=== PATIENT | female | born 1965 | race Caucasian/White ===

== ENCOUNTER 2020-06-30 21:45 | Inpatient (IN) | payer MEDICARE ==
[~2020-06-30] VITALS: Ht 167.6 cm; Wt 47.6 kg
--- NOTE | 2020-06-30 21:55 | NUR ---
Pt. admitted to MHU. , under care of Dr. France/Emilee. Report to Darlin BERKOWITZ Belongs List completed
[2020-06-30] MEDS ORDERED: TRAZ300T2 PO (22:04)
[2020-06-30] MEDS ORDERED: AMOX500C2 PO (22:04)
[2020-06-30] MEDS ORDERED: ARIP10TA9 PO (22:05)
[2020-06-30] MEDS ORDERED: LEVO25TA9 PO (22:06)
[2020-06-30] MEDS ORDERED: CLON0.5T4 PO (22:06)
[2020-06-30] MEDS ORDERED: MAGNESIUM HYDROXIDE 30 ML LIQUID UDC PO PRN (22:30)
[2020-06-30] MEDS ORDERED: MAG HYDROX/AL HYDROX/SIMETH 30 ML LIQUID UDC PO PRN (22:30)
[2020-06-30] MEDS ORDERED: BLOOD SUGAR DIAGNOSTIC 1 EACH STRIP VI ONE (22:30)
--- NOTE | 2020-06-30 22:30 | NUR ---
NSG: ADMITTED A 54 YEARS OLD FEMALE AT 22:30 ON 5150 HOLD FOR DTS/GD UNDER DR. MOSLEY IS THE PSYCHIATRIST AND DR MICHAELS IS THE CART DRIVER. PER HOLD PATIENT WANTS TO KILL HER SELF WITH PLAN. ON FACE TO FACE ASSESSMENT SHE KEPT RAMBLING,PRESSURED SPEECH, UNABLE TO STAY ON ONE TOPIC AND HAVING TANGENTIAL THOUGHTS. BODY ASSESSMENT DONE. SHE HAD SCRACHES ON HER FACE.LESION ON MID CHEST. MULTIPLE SCAR AND SCRATCHES ON BACK AND BOTH LEGS AND ARM. ATIVAN 0.5 MG PO AND RESTORIL 7.5 MG PO GIVEN PER PATIENT REQUESTED. SHOWN TO HER ROOM. HANDBOOK GIVEN. SAFETY MEASURES PUT IN PLACE . WILL CONTINUE TO MONITOR.
--- NOTE | 2020-06-30 22:45 | NUR ---
patient is screaming loud ,very agitated . ativan 0.5 mg po prn given.
[2020-06-30] MEDS: LORAZEPAM 0.5 MG TABLET PO PRN (22:48)
[2020-06-30] MEDS: TEMAZEPAM 7.5 MG CAPSULE PO PRN (23:08)
[2020-07-01] MEDS: LORAZEPAM 0.5 MG TABLET PO PRN (03:22)
--- NOTE | 2020-07-01 03:24 | NUR ---
patient c/o anxiety. ativan 0.5 mg po given.
--- NOTE | 2020-07-01 05:53 | NUR ---
GPS: Remain uncooperative with care. slept 2.30 hrs only after sleeping meds given. ambulate with unsteady gait. assisted with adl's. Resting in bed comfotrably.
[2020-07-01] MEDS ORDERED: LORAZEPAM 2 MG/1 ML VIAL IM ONE ×2 (07:00→08:45)
[2020-07-01] MEDS ORDERED: OLANZAPINE 10 MG VIAL IM ONE ×2 (07:00→08:45)
--- NOTE | 2020-07-01 07:04 | NUR ---
patient is out of control.thronging water on staff,yelling.banging on the table. Dr persaud called. ativan 2 mg im and zyprexa 10 mg im given. patient is resting in bed comfortably. continue monitor for safety.
--- NOTE | 2020-07-01 07:08 | NUR ---
Receieve patient asleep on bed patient just had emergency IM shot just before the start of the shift, patient appears to be disorganized, patient labile, manic , patient was on monitoring for safety,
[2020-07-01 07:30] VITALS: BP 132/89
[2020-07-01] MEDS: NICOTINE 14 MG/24HR PATCH TD SCH (08:18)
--- NOTE | 2020-07-01 08:51 | NUR ---
Firearms Report: Target Protection Specialist completed and submitted a [employer] firearms report for 5150 danger to self and grave disability certifications. A copy of report has been placed in patient chart.
--- NOTE | 2020-07-01 09:00 | NUR ---
patient started yelling, throw the extension phone on the floor, and broke it, patient verbalizes i will scratches my face until i get my medication, report writer tried to educate the patient about her medication, patient unable to redirect , patient started to scratch her face and induce mitchell in her face, patient disrobbed , called matthew miles , security came in and in house cra, called and spoke with DR. persaud, patient got order for physical restrain for 20minutes, face to face evaluation was made by ER doctor, Emergency IM shot was ordered and given, patient was monitored for circulation and VS was stable, one on one sitter was ordered for safety , after 20 minutes patient was released and gave methadone prn, patient was transfered back to her room, patient continous to be disorganized manic unsteady hyperverbal at this time, sitter at the bedside
--- NOTE | 2020-07-01 09:30 | NUR ---
physical restraint order discontinued.
--- NOTE | 2020-07-01 09:31 | NUR ---
JOSE Initial Discharge Plan: Patient is currently uncooperative at this time and is unable to state where she lives/resides. SW will meet with patient again once she is more stable, calm, and cooperative. Patient does not have any next of kin or supportive contacts to notify. SW will continue to work with patient and MD to ensure a safe and proper discharge plan.
[2020-07-01] MEDS ORDERED: METHADONE HCL 10 MG TABLET PO PRN (09:45)
--- NOTE | 2020-07-01 09:52 | NUR ---
Brief Substance Abuse Intervention: Patient was provided with a brief substance abuse intervention for Suboxone and referred to [facility] [address], [place] [address] ([phone]); [facility] [address], [address], [place] [address] ([phone]); [facility] ([phone]); [facility] ([phone]); [facility] ([phone]); and National Suicide Prevention Lifeline (726-204-4353).
--- NOTE | 2020-07-01 11:40 | NUR ---
WOUND CARE CONSULT: UNABLE TO DO SKIN ASSESSMENT DUE TO PT AGITATED. SITTER AT BEDSIDE. SOME SCRATCH TEJEDA NOTED TO PT FACE FROM DOORWAY. PT SCRATCHES AT HER SKIN PER NURSING STAFF. WILL SEE PT PT CONDITION PERMITS.
[2020-07-01 13:00] VITALS: BP 118/51
[2020-07-01] MEDS: OLANZAPINE 2.5 MG TABLET PO SCH ×2 (13:08→16:04)
--- NOTE | 2020-07-01 14:06 | NUR ---
SW Family Contact: This SW contacted patient's andree Bryan ([phone]) to discuss discharge plan and treatment plan. This SW gathered information from [facility]. He reported that patient lives at [address] [place] [address]. He reported that patient has been off substance for many years. He shared that patient has been stressed and depressed because of her finances.
[2020-07-01 14:55] LABS: BASOPHILS % (AUTO) 0.2 % (0.0-2.0); EOSINOPHILS # (AUTO) 0.2 K/uL (0.0-0.7); EOSINOPHILS % (AUTO) 2.1 % (0.0-7.0); HEMATOCRIT 40.9 % (31.2-41.9); HEMOGLOBIN 13.9 g/dL (10.9-14.3); LYMPHOCYTES # (AUTO) 2.6 K/uL (20.0-40.0); LYMPHOCYTES % (AUTO) 26.1 % (20.5-51.5); MEAN CORPUSCULAR HEMOGLOBIN 30.8 uug (24.7-32.8); MEAN CORPUSCULAR HGB CONC 34 g/dL (32.3-35.6); MONOCYTES % (AUTO) 10.1 % (0.0-11.0); NEUTROPHILS # (AUTO) 6.1 K/uL (1.8-8.9); NEUTROPHILS % (AUTO) 61.5 % (38.5-71.5); PLATELET COUNT (AUTO) 241 K/uL (179-408); WHITE BLOOD COUNT (AUTO) 9.9 K/uL (3.8-11.8)
[2020-07-01 15:01] LABS: BILIRUBIN,TOTAL 0.3 mg/dL (0.2-1.0); CREATININE 0.8 mg/dL (0.6-1.3); POTASSIUM 4.6 mmol/L (3.5-5.1); TOTAL PROTEIN, SERUM 7.1 g/dL (6.4-8.2)
[2020-07-01 15:12] LABS: THYROID STIMULATING HORMONE 6.542 mIU/mL (0.358-3.740)
[2020-07-01] MEDS: CLONAZEPAM 1 MG TABLET PO PRN (15:12)
[2020-07-01] MEDS: METHADONE HCL 10 MG TABLET PO SCH (16:04)
[2020-07-01] MEDS: ENSURE ENLIVE (VAN) 240 ML LIQUID PO SCH ×2 (16:04→21:00)
--- NOTE | 2020-07-01 17:44 | NUR ---
PATIENT SEEN CALM AND COOPERATIVE, PATIENT COMPLIANT WITH MEDICATION, MONITORED [id number] WITH BEDSIDE SITTER AT THIS TIME, NO SIGN OF ANY DISTRESS
[2020-07-01 20:01] VITALS: BP 115/82
[2020-07-01] MEDS: TEMAZEPAM 7.5 MG CAPSULE PO PRN (22:27)
[2020-07-02] MEDS: CLONAZEPAM 1 MG TABLET PO PRN ×5 (00:51→19:52)
[2020-07-02] MEDS: LEVOTHYROXINE SODIUM 25 MCG TABLET PO SCH (05:21)
[2020-07-02 07:30] VITALS: BP 112/85
[2020-07-02] MEDS: OLANZAPINE 2.5 MG TABLET PO SCH ×2 (08:50→16:01)
[2020-07-02] MEDS: NICOTINE 14 MG/24HR PATCH TD SCH (08:51)
[2020-07-02] MEDS: METHADONE HCL 10 MG TABLET PO SCH ×2 (08:51→16:01)
[2020-07-02] MEDS: ENSURE ENLIVE (VAN) 240 ML LIQUID PO SCH ×3 (08:56→16:01)
[2020-07-02] MEDS ORDERED: METHADONE HCL 10 MG TABLET PO ONE (10:15)
[2020-07-02 15:21] VITALS: BP 114/74
[2020-07-02 20:00] VITALS: BP 123/72
[2020-07-02] MEDS: ACETAMINOPHEN 325 MG TABLET PO PRN (22:21)
[2020-07-02] MEDS: TEMAZEPAM 7.5 MG CAPSULE PO PRN (22:21)
[2020-07-03] MEDS: CLONAZEPAM 1 MG TABLET PO PRN ×2 (00:15→20:56)
[2020-07-03] MEDS: LEVOTHYROXINE SODIUM 25 MCG TABLET PO SCH (06:00)
--- NOTE | 2020-07-03 06:08 | NUR ---
Patient was up most of the night. Hyperactive and seeking any medications that might be due. Manufacturing Operator was able to redirect patient most of the time. Total sleep hours were 4.17. Multiple times during the shift patient would make self destructive comments , such as " I am too fat, I need to weight 85 lbs ". 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 Throwing water in the room when angry with labile behavior. Manufacturing Operator is unable to engage patient in any meaningful conversation and her speech is tangental. Continuing to provide a safe environment and monitoring patient closely for behavior escalation aimed towards self, peers or staff.
[2020-07-03 07:30] VITALS: BP 117/72
[2020-07-03 08:00] VITALS: BP 117/72
[2020-07-03] MEDS: METHADONE HCL 10 MG TABLET PO SCH ×2 (08:00→18:10)
[2020-07-03] MEDS: OLANZAPINE 2.5 MG TABLET PO SCH ×2 (08:01→18:13)
[2020-07-03] MEDS: ENSURE ENLIVE (VAN) 240 ML LIQUID PO SCH ×3 (08:01→17:55)
[2020-07-03] MEDS: NICOTINE 14 MG/24HR PATCH TD SCH (08:01)
[2020-07-03] MEDS: ACETAMINOPHEN 325 MG TABLET PO PRN (10:57)
[2020-07-03 16:00] VITALS: BP 103/66
[2020-07-03 20:00] VITALS: BP 134/78
[2020-07-03] MEDS: TEMAZEPAM 7.5 MG CAPSULE PO PRN (22:33)
[2020-07-04] MEDS: CLONAZEPAM 1 MG TABLET PO PRN ×2 (02:04→22:49)
[2020-07-04] MEDS: ACETAMINOPHEN 325 MG TABLET PO PRN ×2 (02:04→14:16)
--- NOTE | 2020-07-04 05:58 | NUR ---
Patient slept 3.0 hours last night. Her mood was much calmer than the night before and patient was redirectable and pleasant. Although needy at times, no behavioral issues arouse and patient was able to socialize with her roommate with out any distress. Still medication seeking at times but an improvement from earlier. Continuing to monitor for safety and continuing with the treatment plan.
[2020-07-04] MEDS: LEVOTHYROXINE SODIUM 25 MCG TABLET PO SCH (06:18)
[2020-07-04 07:30] VITALS: BP 121/52
--- NOTE | 2020-07-04 08:00 | NUR ---
received report from WOO Sofia. All questions, comments, and concerns were addressed. Received patient resting quietly in her assigned bed. bed is in low and locked position. patient is arousable to name.
[2020-07-04] MEDS: OLANZAPINE 2.5 MG TABLET PO SCH (08:31)
[2020-07-04] MEDS: NICOTINE 14 MG/24HR PATCH TD SCH (08:31)
[2020-07-04] MEDS: ENSURE ENLIVE (VAN) 240 ML LIQUID PO SCH ×3 (08:31→17:50)
[2020-07-04] MEDS: METHADONE HCL 10 MG TABLET PO SCH ×2 (08:31→16:53)
--- NOTE | 2020-07-04 10:47 | NUR ---
patient is alert and oriented. patient is withdrawn, isolative to her assigned room, cooperative and redirectable. she is needy, anxious, restless, hyperverbal, and noted with racing, tangential thoughts. patient is adherent with medication, no adverse reaction noted. she is labile in mood. patient is unkempt and disheveled in her own clothing. denies SI/HI, denies AH/VH. she is able to ambulate independently, encouraged to perform self care and ADL's. patient encouraged to participate in the unit therapeutic milieu and groups. educated about impulse control.
[2020-07-04 15:04] VITALS: BP 113/48
--- NOTE | 2020-07-04 15:21 | NUR ---
SW Family Contact: This SW spoke with patient's andree Bryan ([phone]) who wanted to know when patient will be discharged. This SW stated patient continues to receive her treatment and do not have a discharge day yet. SW will follow-up.
[2020-07-04 20:22] VITALS: BP 132/54
[2020-07-04] MEDS ORDERED: OLANZAPINE 2.5 MG TABLET PO SCH (21:00)
[2020-07-04] MEDS ORDERED: OLANZAPINE 5 MG TABLET PO SCH (21:00)
[2020-07-04] MEDS: TEMAZEPAM 7.5 MG CAPSULE PO PRN (22:03)
--- NOTE | 2020-07-04 22:51 | NUR ---
Gps: patient c/o anxiety. klonopin 1 mg po given.
[2020-07-05] MEDS: LEVOTHYROXINE SODIUM 25 MCG TABLET PO SCH (06:09)
--- NOTE | 2020-07-05 06:23 | NUR ---
Gps: Patient remain. Hyperverbal and seeking any medications that might be due. Total sleep hours were 6. Multiple times during the shift patient would make self destructive comments , such as " I am too fat, I need to weight 50 lbs ". 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 Throwing water and empty cups on the floor. angry with labile behavior. conversation and her speech is tangental. Continuing to provide a safe environment and monitoring patient closely for behavior escalation aimed towards self, peers or staff.
[2020-07-05] MEDS: CLONAZEPAM 1 MG TABLET PO PRN ×3 (07:17→18:44)
[2020-07-05 07:30] VITALS: BP 101/67
[2020-07-05] MEDS: METHADONE HCL 10 MG TABLET PO SCH ×2 (08:08→16:17)
[2020-07-05] MEDS: NICOTINE 21 MG/24HR PATCH TD SCH (08:09)
[2020-07-05] MEDS: ENSURE ENLIVE (VAN) 240 ML LIQUID PO SCH ×3 (08:09→16:12)
--- NOTE | 2020-07-05 15:11 | NUR ---
patient noted with unpredictable behavior, agitated behavior,hyperverbal, noted staying in the bathroom longer times of periods, Klonopin given to patient as ordered, with some effectiveness. denied suicidal thoughts,continue to monitor for behavior
[2020-07-05] MEDS ORDERED: GABAPENTIN 100 MG CAPSULE PO SCH (17:00)
[2020-07-05] MEDS: ACETAMINOPHEN 325 MG TABLET PO PRN (20:18)
[2020-07-05] MEDS: ARIPIPRAZOLE 10 MG TABLET PO SCH (20:18)
[2020-07-05 20:21] VITALS: BP 164/59
[2020-07-05 20:23] VITALS: BP 97/59
--- NOTE | 2020-07-05 20:25 | NUR ---
patient c/o gen: pain and fever 99.8. tylenol 650 mg po given per patient request.
[2020-07-05] MEDS: TEMAZEPAM 7.5 MG CAPSULE PO PRN (22:17)
[2020-07-06] MEDS: CLONAZEPAM 1 MG TABLET PO PRN ×3 (01:24→20:19)
--- NOTE | 2020-07-06 01:25 | NUR ---
GPS: PATIENT IS VERY ANGRY TO STAFF STATED I WANT GO HOME.YOU SINGH ARE UGLY.THROWING PAPER CUPS ON THE FLOOR. KLONOPIN 1 MG PO GIVEN FOR ANXIETY.
[2020-07-06] MEDS: LEVOTHYROXINE SODIUM 25 MCG TABLET PO SCH (06:07)
--- NOTE | 2020-07-06 06:20 | NUR ---
Gps: Patient remain, Hyperverbal and medications seeking slept 4.15 hrs through the night. Multiple times during the shift patient would make self destructive comments , such as " I am too fat, I am rich. 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 patient had episode of Throwing water and empty cups on the floor. patient was angry with labile behavior. conversation and her speech is tangental. klonopin given for anxiety and effective.Continuing to provide a safe environment and monitoring patient closely for behavior escalation aimed towards self, peers or staff. continue plan of care.
[2020-07-06 07:30] VITALS: BP 98/57
--- NOTE | 2020-07-06 07:30 | NUR ---
received report from HILARIO Armstrong. All questions, comments, and concerns were addressed. Received patient awake, resting quietly in her assigned bed. patient is alert to name. bed is in low and locked position.
[2020-07-06] MEDS: ENSURE ENLIVE (VAN) 240 ML LIQUID PO SCH ×3 (09:02→17:46)
[2020-07-06] MEDS: NICOTINE 21 MG/24HR PATCH TD SCH (09:24)
[2020-07-06] MEDS: METHADONE HCL 10 MG TABLET PO SCH ×2 (09:24→16:25)
--- NOTE | 2020-07-06 09:32 | NUR ---
MOBILE ENGINEER Contact: This SW received a phone call from patient's MOBILE ENGINEER Gem ([phone]) who wanted to know how patient has been doing. This SW discussed treatment and discharge plan. Gem stated that patient has been contacting her and stating that the doctor wants to file for conservatorship. This SW stated that doctor is not planning on filing for conservatorship and patient appears to be disorganized.
[2020-07-06] MEDS ORDERED: LORAZEPAM 2 MG/1 ML VIAL IM ONE (11:15)
[2020-07-06] MEDS ORDERED: diphenhydrAMINE 50 MG/1 ML VIAL IM ONE (11:15)
[2020-07-06] MEDS ORDERED: HALOPERIDOL LACTATE 5 MG/1 ML VIAL IM ONE (11:15)
--- NOTE | 2020-07-06 11:31 | NUR ---
patient was noted to be walking in the hallway screaming obscenities at staff, yelling 'I'm skinny! I'm beautiful!'. Patient asked this bond writer for Milk of Magnesia, states "Look at me! I'm so fat! Look at my stomach!" despite the fact that patient had a BM this morning. This bond writer educated patient about MOM and indications for taking medication, patient is refusing education and stated "Fine! Then I'll stick my finger up my ass!" then proceeded to pull her pants down in the middle of the hallway and place her index finger inside her rectum. Patient was also noted to be smearing her feces in her assigned bathroom this AM. patient then continues screaming, cursing and threatening staff. patient then started to hit herself in the abdomen and yell at herself. Md notified of patient's behavior, orders received for Haldol 5 mg, Ativan 1 mg, Benadryl 50 mg IM once. Orders placed. Security notified. IM given without adverse reaction. Patient instructed to remain seated to prevent fall.
[2020-07-06 16:00] VITALS: BP 101/64
[2020-07-06] MEDS: ARIPIPRAZOLE 10 MG TABLET PO SCH ×2 (16:25→20:15)
[2020-07-06 20:24] VITALS: BP 111/76
--- NOTE | 2020-07-06 21:04 | NUR ---
Pt given Klonopin prn at 2019H because of agitation. Pt tolerated it well. Vital signs stable. Safety and comfort provided. Will continue to monitor.
[2020-07-06] MEDS: TEMAZEPAM 7.5 MG CAPSULE PO PRN (22:00)
[2020-07-07] MEDS: LEVOTHYROXINE SODIUM 25 MCG TABLET PO SCH (06:40)
--- NOTE | 2020-07-07 06:41 | NUR ---
PT SLEPT 6.5 H. PT IN NO ACUTE DISTRESS. PT HAD 3 BOWEL MOVEMENTS. PRESCRIBED MEDICATION GIVEN AND PT TOLERATED IT WELL. SAFETY AND COMFORT PROVIDED. WILL ENDORSE TO INCOMING NURSE FOR CONTINUITY OF CARE.
[2020-07-07 07:30] VITALS: BP 120/83
[2020-07-07] MEDS: ARIPIPRAZOLE 10 MG TABLET PO SCH ×2 (08:09→20:38)
[2020-07-07] MEDS: METHADONE HCL 10 MG TABLET PO SCH ×2 (08:11→16:17)
[2020-07-07] MEDS: NICOTINE 21 MG/24HR PATCH TD SCH (08:12)
[2020-07-07] MEDS: ENSURE ENLIVE (VAN) 240 ML LIQUID PO SCH ×3 (08:12→17:37)
--- NOTE | 2020-07-07 10:19 | NUR ---
Court Hearing: Patient's court hearing was today and it was upheld for GD.
--- NOTE | 2020-07-07 11:00 | NUR ---
TRAINING DESIGNER Contact: This SW spoke with patient's TRAINING DESIGNER Gem ([phone]) who stated that she will be picking up patient 04/09/20 at 11AM and not her andree Bryan. This SW will contact Irvin.
--- NOTE | 2020-07-07 11:02 | NUR ---
SW Family Contact: This SW left a voicemail to patient's andree Bryan ([phone]) and stated that STRETCHING MACHINE OPERATORDebbie Rabago ([phone]) will supervisor picking crew at 11AM.
[2020-07-07 16:32] VITALS: BP 121/70
--- NOTE | 2020-07-07 19:33 | NUR ---
No significant changes during shift. Patient stayed in room for most of the shift. Patient was compliant with medication and care. Patient denies SI/ HI. Patient for discharge tomorrow. Will endorse to incoming shift.
[2020-07-07 20:20] VITALS: BP 112/65
[2020-07-07] MEDS: CLONAZEPAM 1 MG TABLET PO PRN (20:38)
[2020-07-07] MEDS: TEMAZEPAM 7.5 MG CAPSULE PO PRN (22:14)
--- NOTE | 2020-07-08 04:59 | NUR ---
PATIENT ALERT ORIENTED, NO COMPLAIN OF PAIN, STAYED IN HER ROOM, REQUEST FOR KLONOPIN DUE TO ANXIETY, AND REQUEST FOR SLEEPING MEDS FOR INSOMNIA. PATIENT COOPERATIVE WITH MEDICATION AND CARE. PATIENT HAS X2 LBM , WILL CONT TO MONITOR,NOTIFY CHARGE NURSE, ENDORSE TO NEXT SHIFT.
[2020-07-08] MEDS: LEVOTHYROXINE SODIUM 25 MCG TABLET PO SCH (06:44)
[2020-07-08 07:30] VITALS: BP 121/86
--- NOTE | 2020-07-08 08:07 | NUR ---
SW Discharge Note: Patient will be [facility] back [place] [address] [facility] [address] with her darwin Bryan ([phone]). Patients NIGHT SHIFT Gem ([phone]) will citrus picker patient at 11AM. Patients darwin Bryan ([phone]) is aware of discharge. Patient is alert and oriented x4 and is aware and agreeable with discharge plans. Patient presents with euthymic mood and congruent affect. Patient denies suicidal or homicidal ideation. Patient will be following up with her psychiatrist Dr. Marco Humphrey MD [address] [place] [address] ( ) on Saturday07/11/2020 at 3PM. Patient was provided with a brief substance abuse intervention and referred to [facility] [address] [place] [address] ([phone]); [facility] [address] [place] [address], [address], [place] [address] ([phone]); [facility] ([phone]); [facility] ([phone]); [facility] ([phone]); and National Suicide Prevention Lifeline (678-969-3239).
[2020-07-08] MEDS: ARIPIPRAZOLE 10 MG TABLET PO SCH (08:28)
[2020-07-08] MEDS: METHADONE HCL 10 MG TABLET PO SCH (08:28)
[2020-07-08] MEDS: NICOTINE 21 MG/24HR PATCH TD SCH (08:28)
[2020-07-08] MEDS: ENSURE ENLIVE (VAN) 240 ML LIQUID PO SCH ×2 (08:29→12:14)
--- NOTE | 2020-07-08 09:49 | NUR ---
SW Note: Patient has a follow up for Methadone treatment at [address] [address] ([phone]) and has an appointment scheduled on Saturday07/11/20 at 6am spoke with Maria C.
--- NOTE | 2020-07-08 13:49 | NUR ---
With discharge order to home. Prescription and DC instruction given to patient, vebalized understanding. Belongings and valuables returned to patient. Went home per wheelchair i fair condition, not in distress, calm and compliant.
== END 2020-07-08 17:01 | disposition home or self-care (01) | DRG 885 ==
LOC: ER 21:45 → GPS 22:05
PROVIDERS: ADMIT Psychiatry & Neurology Psychiatry; ATTEND Nurse Practitioner Acute Care
DX: F39 Unspecified mood [affective] disorder (principal); F13.239 Sedative, hypnotic or anxiolytic dependence with withdrawal, unspecified; G93.41 Metabolic encephalopathy; R45.851 Suicidal ideations; F23 Brief psychotic disorder; E03.9 Hypothyroidism, unspecified; F32.9 Major depressive disorder, single episode, unspecified; F17.200 Nicotine dependence, unspecified, uncomplicated; G89.29 Other chronic pain
CPT/HCPCS: 36415; 84443; 85025; A4663; J1200; J1630; J2060; J2358

== ENCOUNTER 2021-01-12 14:00 | Inpatient (IN) | payer MEDICARE ==
[~2021-01-12] VITALS: Ht 167.6 cm; Wt 51.3 kg
[~2021-01-12 14:00] MED LIST: AMOX500C2 PO; LEVO25TA9 PO
[2021-01-12] MEDS ORDERED: CLON1TAB12 PO (14:16)
[2021-01-12] MEDS ORDERED: AMAN100T PO (14:16)
[2021-01-12] MEDS ORDERED: SUBOXONE (14:16)
[2021-01-12] MEDS ORDERED: ESOM40CA PO (14:16)
[2021-01-12] MEDS ORDERED: LEVO100C2 PO (14:16)
[2021-01-12] MEDS ORDERED: AMIT25TA9 PO (14:16)
[2021-01-12] MEDS ORDERED: AMOX500C2 PO (14:16)
[2021-01-12] MEDS ORDERED: POLY17PO4 PO (14:16)
[2021-01-12] MEDS ORDERED: TRAZ150T75 PO (14:16)
[2021-01-12] MEDS ORDERED: SUCR1TAB31 PO (14:16)
[2021-01-12] MEDS ORDERED: DIPH50CA37 PO (14:16)
[2021-01-12] MEDS ORDERED: OMEG1CAP PO (14:16)
--- NOTE | 2021-01-12 14:35 | NUR ---
Pt requested "a shot of Haldol", pt was medicated as ordered by .
--- NOTE | 2021-01-12 14:37 | NUR ---
Per pt is medically clear for admission to MHU.
[2021-01-12] MEDS ORDERED: HALOPERIDOL LACTATE 5 MG/1 ML VIAL ONE (14:40)
--- NOTE | 2021-01-12 14:41 | NUR ---
SBAR report given to Maricarmen in MHU.
[2021-01-12] MEDS ORDERED: HALOPERIDOL LACTATE 5 MG/1 ML VIAL IM ONE (14:45)
--- NOTE | 2021-01-12 15:01 | NUR ---
Pt trans to MHU, NAD noted.
--- NOTE | 2021-01-12 15:30 | NUR ---
Gps/Medical Resident- Received report from WOO NICHOLAS . Admitted from ER via wheel chair, alert, oriented x3, labile emotionally , crying spells, yelling at the staff, demanding needs. Refused to get weighed . Irritable , instructed to calm down. Has own cell phone , instructed to get all information she needed in it, write it down , will put valuables and phone in the safe. Patient kept calling her Trustee Cindy , yelling at her , demanding needs. Routine admission care.
[2021-01-12] MEDS ORDERED: MAGNESIUM HYDROXIDE 30 ML LIQUID UDC PO SCH (16:30)
[2021-01-12] MEDS ORDERED: MAG HYDROX/AL HYDROX/SIMETH 30 ML LIQUID UDC PO PRN (16:30)
[2021-01-12] MEDS ORDERED: LORAZEPAM 1 MG TABLET PO SCH (18:00)
--- NOTE | 2021-01-12 18:03 | NUR ---
GPS: PT ADMITTED TODAY AND REQUESTED TO USE THE BATHROOM. PT OBSERVED TO BE SCOOPING FECES FROM HER ANUS AND SPREAD ON HER MOUTH AND EATING THE FECES. RINSED HER HANDS A LITTLE AND WASH HER FACE AND STATING "LOOK AT MY FACE, I'M BEAUTIFUL". SEEN PT SCRATCH HER VAGINA. PT WITH EPISODE OF VERY AGITATED AND SCRATCHED HER FACE.
--- NOTE | 2021-01-12 18:10 | NUR ---
Gps/Computer Systems Design Analyst- Impulsivity with her mobility, gets up abruptly from the wheel chair during admission, walking side ways. Yelling at staff telling them " I want to see my money right now, you are stealing it" . Patient remains anxious, fidgety, wheeled to her room, as assigned, , dinner given, ate fairly well, except milk claimed she does not drink it. Patient tend to dropped self to the floor as observed by the staff , trying to get attentions from staff , trying to meet provide her needs.
[2021-01-12] MEDS: LORAZEPAM 1 MG TABLET PO PRN (18:27)
[2021-01-12] MEDS ORDERED: OLANZAPINE 10 MG VIAL IM STA (19:59)
[2021-01-12 20:00] VITALS: BP 118/71
--- NOTE | 2021-01-12 20:21 | NUR ---
Received patient yelling, demanding, throwing items in the unit. Patient combative and striking out at staff. Less restrictive means were attempted to calm patient, with no results. Dr. Bell was notified and the order was received for a one time IM injection. The patient was cooperative when receiving the injection. No need for security and no hands were applied. Currently a face to face evaluation is being done. VS are stable at this time. Monitoring closely for safety of staff, patient and peers.
[2021-01-12 21:30] VITALS: BP 119/81
--- NOTE | 2021-01-12 21:55 | NUR ---
GPS: Pt.asleep at this time during rounds. Breathing easy and unlabored. Responsive to tactile stimuli. Bed alarm on for safety. Fall precautions observed. Will continue to re-direct prn.
[2021-01-13] MEDS: LORAZEPAM 1 MG TABLET PO PRN ×3 (03:52→20:16)
--- NOTE | 2021-01-13 06:17 | NUR ---
GPS: Pt.slept 7 hrs.last night. Got up few times to use the toilet. Remains anxious,depressed,and with crying episodes. Re-directed and re-assured prn. Denied auditory hallucinations when asked earlier. Safe environment provided. Will continue to monitor.
[2021-01-13 07:30] VITALS: BP 127/76
[2021-01-13] MEDS: NICOTINE 21 MG/24HR PATCH TD SCH (08:17)
[2021-01-13] MEDS: MAGNESIUM HYDROXIDE 30 ML LIQUID UDC PO PRN (08:21)
--- NOTE | 2021-01-13 08:22 | NUR ---
Gps/Contaminated Land Consultant- Yelling screaming, making inappropriate nasty remarks towards the staff.Noted disrobing on the hallway, pulling her pajama bottoms down, showing her anus, claimed extremely constipated" I will pull out my shit and will eat it" .Loud demanding to be given MOM" Patient apologizes to staff crying after bouts of yelling , curisng and calling staff names.
[2021-01-13] MEDS ORDERED: HALOPERIDOL LACTATE 5 MG/1 ML VIAL IM ONE (09:45)
[2021-01-13] MEDS ORDERED: diphenhydrAMINE 50 MG/1 ML VIAL IM ONE (09:45)
--- NOTE | 2021-01-13 10:45 | NUR ---
Gps/Manager Clinic- Patient in bed asleep
--- NOTE | 2021-01-13 11:36 | NUR ---
PT NOTED SEVERELY PSYCHOTIC, THROWING HERSELF ON FLOOR. EPISODES OF YELLING/SCREAMING. PT IS COVERED IN FECES AND EATING HER FECES. REQUIRES EXTENSIVE REDIRECTION.
--- NOTE | 2021-01-13 11:50 | NUR ---
Gps/Payroll Coordinator- Incontinent of pasty stools, smears BM all over her bed, side rails, , redirected to shower self, needed maximum cueing redirections encouragement. , constantly yelling for her needs., kept removing her hosp. gown .
[2021-01-13] MEDS: ENSURE ENLIVE (VAN) 240 ML LIQUID PO SCH ×2 (12:53→18:12)
[2021-01-13] MEDS ORDERED: CLONAZEPAM 0.5 MG TABLET PO SCH (13:30)
[2021-01-13] MEDS ORDERED: HYDROXYZINE PAMOATE 25 MG CAPSULE PO PRN (13:30)
[2021-01-13] MEDS: BENZTROPINE MESYLATE 1 MG TABLET PO SCH ×2 (14:14→16:10)
[2021-01-13] MEDS: HALOPERIDOL 5 MG TABLET PO SCH ×3 (14:14→21:17)
--- NOTE | 2021-01-13 15:27 | NUR ---
JOSE Initial Discharge Note Pt reports living at home at [address], [place] [address]. Pt reports she would like to return home upon discharge. JOSE will continue to work with pt and MD to ensure a safe and proper discharge.
[2021-01-13 16:00] VITALS: BP 127/76
[2021-01-13] MEDS: DIVALPROEX 250 MG TABLET.DR PO SCH (16:12)
[2021-01-13] MEDS: METHADONE HCL 10 MG TABLET PO SCH ×2 (16:12→23:35)
[2021-01-13] MEDS: SUCRALFATE 1 G TABLET PO SCH ×2 (16:20→20:35)
--- NOTE | 2021-01-13 16:21 | NUR ---
Gps/Creative Services Writer- Refusing Depakote , claimed it will put her in a wheel chair, refusing carafate , it does not help, too many meds. per pt.
--- NOTE | 2021-01-13 17:00 | NUR ---
Gps/Ni- Neal coming out of her room, rolling up her hospital gown,showing her private area, claimed she's got beautiful body, noted patient trying to hit her head on the side wall by the hallway, disouraged patient from doing so. Patches of scratched mitchell ler left forearm, and forehead, patches of blood stain on her pillow case noted.Encouraged to wear underwear.
--- NOTE | 2021-01-13 18:00 | NUR ---
Gps/Miter Saw Operator- Patient came out her room hitting her head o the hallway close to the nurses station, discouraged patient from doinfg it. patches of blood stain on the wall, pet patient asking questions," Am I ugly now my face is messed up"?Safety reviewed, continue to emphasized.
[2021-01-13] MEDS: DOXYCYCLINE HYCLATE 100 MG TABLET PO SCH ×3 (18:43→23:34)
[2021-01-13 20:13] VITALS: BP 133/78
[2021-01-13] MEDS: AMANTADINE HCL 100 MG CAPSULE PO SCH (20:35)
--- NOTE | 2021-01-14 00:01 | NUR ---
received to care, lying in bed, verbally abusive, at times, but responds to redirection. denies wanting to hurt herself, but alludes to hearing voices. compliant with medications, and staff direction. as of now, she appears to be sleeping. no distress noted. will continue to monitor closely.
[2021-01-14] MEDS: ZOLPIDEM 5 MG TABLET PO PRN (00:30)
--- NOTE | 2021-01-14 01:30 | NUR ---
HIRALN rosie given at 0030 for insomnia. as of now, she appears to be asleep. no distress noted.
--- NOTE | 2021-01-14 03:00 | NUR ---
pt is yelling, talking to unseen entities, throwing water at staff, attempting to scratch self, and bang head on wall, in hallway. this episode lasted about ten minutes, the staff was then able to redirect her back to her room. she calmed down after a few more minutes, and went back to sleep.
--- NOTE | 2021-01-14 06:00 | NUR ---
slept 7.75 hours. continues to sleep. no distress noted.
--- NOTE | 2021-01-14 06:53 | NUR ---
continues to sleep, soundly. no distress, noted.
[2021-01-14] MEDS: PANTOPRAZOLE SODIUM 40 MG TABLET.DR PO SCH (07:27)
[2021-01-14] MEDS: LEVOTHYROXINE SODIUM 100 MCG TABLET PO SCH (07:27)
[2021-01-14] MEDS: LORAZEPAM 1 MG TABLET PO PRN ×2 (07:28→14:56)
--- NOTE | 2021-01-14 07:28 | NUR ---
pt is now awake, yelling and screaming that the voices wont go away, and they ar esaying she is ugly. PRN ativan was given. report given to oncoming shift.
[2021-01-14] MEDS: NICOTINE 21 MG/24HR PATCH TD SCH (08:15)
[2021-01-14] MEDS: HALOPERIDOL 5 MG TABLET PO SCH ×4 (08:15→20:07)
[2021-01-14] MEDS: SUCRALFATE 1 G TABLET PO SCH ×4 (08:15→20:07)
[2021-01-14] MEDS: OMEGA-3 FATTY ACIDS/FISH OIL CAPSULE PO SCH (08:15)
[2021-01-14] MEDS: BENZTROPINE MESYLATE 1 MG TABLET PO SCH ×3 (08:16→16:32)
[2021-01-14] MEDS: METHADONE HCL 10 MG TABLET PO SCH ×2 (08:17→16:32)
[2021-01-14] MEDS: DIVALPROEX 250 MG TABLET.DR PO SCH ×3 (08:18→16:32)
[2021-01-14] MEDS: AMANTADINE HCL 100 MG CAPSULE PO SCH ×2 (08:18→20:16)
[2021-01-14] MEDS: ENSURE ENLIVE (VAN) 240 ML LIQUID PO SCH ×3 (08:18→16:41)
[2021-01-14] MEDS: DOXYCYCLINE HYCLATE 100 MG TABLET PO SCH ×2 (08:19→20:07)
[2021-01-14] MEDS: MIRALAX 17 GM POWD.PACK PO SCH (08:25)
--- NOTE | 2021-01-14 15:40 | NUR ---
Gps/Academic Computing Director- Patient was incontinent of loose stools, smears on her siderails, bathroom floor full of disrty used toilet papers, smears allover the toilet commode , Encouraged to clean self, set up, with her hygiene. Complete linen/bed sheets changed.
[2021-01-14 16:00] VITALS: BP 149/84
--- NOTE | 2021-01-14 16:05 | NUR ---
Gps/Data Reporting Analyst- Had been calmer this this afternoon napping on and off, used phone couple of times , she's trying to get hold of her boyfriend. Fidgety, episode of showing off her belly while on the hallway infront of male patient, discouraged from doing so
--- NOTE | 2021-01-14 16:33 | NUR ---
Gps/Taker Away- Documented patient was calmer,, but noted patient spilling ensure all over the floor, claimed the voices did it, as she requested to be showered, , noted > scratches on her face, and chest leonardo, self inflicted, needed to monitored closely about her behavior, constantly needing redirections at this time.Patient argues w/ staff, came charging towards the Charge Nurse hitting her on on her left shoulder, pt.blamed it to the voices she's hearing.
[2021-01-14] MEDS: NEOMY/BACITRAC/POLYMI OINT 28.35 GM TUBE TOP SCH (18:02)
[2021-01-14 20:00] VITALS: BP 122/72
[2021-01-15] MEDS: PANTOPRAZOLE SODIUM 40 MG TABLET.DR PO SCH (07:00)
--- NOTE | 2021-01-15 07:00 | NUR ---
PATIENT SLEPT FOR 8.30 HRS, GIVEN SLEEPING MEDS WITH EFFECTIVE RESULTS, PATIENT STILL HAVE EPISODE OF AGITATION, YELLING WANTED HER HALDOL, AND STATED SHE GOING TO KILL HERSELF IN THE STATION, REDIRECT PATIENT BEHAVIOR, WITH SOME HELP. CONT TO MONITOR.
[2021-01-15 07:30] VITALS: BP 149/82
[2021-01-15] MEDS: HALOPERIDOL 5 MG TABLET PO SCH ×4 (08:21→20:23)
[2021-01-15] MEDS: OMEGA-3 FATTY ACIDS/FISH OIL CAPSULE PO SCH (08:21)
[2021-01-15] MEDS: SUCRALFATE 1 G TABLET PO SCH ×4 (08:21→20:23)
[2021-01-15] MEDS: AMANTADINE HCL 100 MG CAPSULE PO SCH ×2 (08:21→20:23)
[2021-01-15] MEDS: DOXYCYCLINE HYCLATE 100 MG TABLET PO SCH ×2 (08:21→20:23)
[2021-01-15] MEDS: BENZTROPINE MESYLATE 1 MG TABLET PO SCH ×3 (08:21→16:19)
[2021-01-15] MEDS: DIVALPROEX 250 MG TABLET.DR PO SCH ×3 (08:22→16:23)
[2021-01-15] MEDS: METHADONE HCL 10 MG TABLET PO SCH ×2 (08:22→17:00)
[2021-01-15] MEDS: ENSURE ENLIVE (VAN) 240 ML LIQUID PO SCH ×3 (08:22→17:00)
[2021-01-15] MEDS: MIRALAX 17 GM POWD.PACK PO SCH (08:22)
[2021-01-15] MEDS: NICOTINE 21 MG/24HR PATCH TD SCH (08:24)
--- NOTE | 2021-01-15 09:16 | NUR ---
PT HAS EPISODES OF AGITATION, YELLING/SCREAMING, AND CRYING SPELLS. PT QUITE PSYCHOTIC AND BIZARRE. SMEARING FECES OVER THE ROSA OF HER BATHROOM. FREQUENT REDIRECTION REQUIRED. STATES SHE IS HEARING VOICES.
--- NOTE | 2021-01-15 10:13 | NUR ---
Gps/Tax Accounting Assistant- Cooperative with her lab. draws this am, compliant wit routine am meds, except her methadone which she refused, stated" i am not a druggy" Get anxious easily, gets loud , tendency to yell for all her needs and demands, fidgety, jerky movements. Showing inappropriate behavior, walking around bare bottom , showing off her chest . Patient able to talked to her boyfriend.
[2021-01-15] MEDS: LEVOTHYROXINE SODIUM 100 MCG TABLET PO SCH (10:42)
[2021-01-15] MEDS: NEOMY/BACITRAC/POLYMI OINT 28.35 GM TUBE TOP SCH (10:42)
[2021-01-15] MEDS: LORAZEPAM 1 MG TABLET PO PRN (13:23)
--- NOTE | 2021-01-15 13:25 | NUR ---
Gps/Archeologist-Patient stated" they will not going to do any Conservatorship on me, i will fight, i can take care of myself" Anxious, requesting ativan 1 mg 1 tab po. Complained of feeling cold, requested for her dirty/stained robe , staff removed and cut strings and belt which patient agreed to it.
[2021-01-15 16:00] VITALS: BP 128/69
--- NOTE | 2021-01-15 16:23 | NUR ---
Gps/Broadcast Engineer- Noted patient calmer this pm, stayed in the activity room watching TV less anixous,
--- NOTE | 2021-01-15 17:11 | NUR ---
Gps/Concrete Paving Machine Operator- Patient's acid remover came in from [facility] and brought in some toiletries and clothes she requested, chocolate and candies.
--- NOTE | 2021-01-15 18:06 | NUR ---
Gps/Cinder Pitman- Patient refused to sign belonging papers, claimed she's too busy trying to find a phone numbers she's trying to focus dont bother her.Patient able to talked to Irvin(boyfriend, patient and boyfriend argueing on the phone.
--- NOTE | 2021-01-15 18:25 | NUR ---
Gps/Technology Professional- Patient threw dinner tray on the floor, when she learned, her boyfriend unable to come in to visit her already at the front lobby r/t not vaccinated. Patient yelling , screaming, extremely agitated, upset , hysterical ,per pt, " he is all i got to help me, i dont have anybody"
[2021-01-15 20:00] VITALS: BP 115/60
[2021-01-15] MEDS: ACETAMINOPHEN 325 MG TABLET PO PRN (20:24)
[2021-01-15] MEDS: ZOLPIDEM 5 MG TABLET PO PRN (22:02)
[2021-01-16] MEDS: LORAZEPAM 1 MG TABLET PO PRN ×3 (04:26→16:48)
--- NOTE | 2021-01-16 06:19 | NUR ---
GPS: Pt.slept 8.30 last night. No escalation of behavior noted. Contracts for safety while in the hosp. Re-assured and re-directed prn. Will continue to monitor.
[2021-01-16] MEDS: LEVOTHYROXINE SODIUM 100 MCG TABLET PO SCH (06:45)
[2021-01-16] MEDS: PANTOPRAZOLE SODIUM 40 MG TABLET.DR PO SCH (06:45)
[2021-01-16] MEDS: SUCRALFATE 1 G TABLET PO SCH ×4 (06:45→20:21)
[2021-01-16] MEDS: DOXYCYCLINE HYCLATE 100 MG TABLET PO SCH ×2 (08:54→20:20)
[2021-01-16] MEDS: NICOTINE 21 MG/24HR PATCH TD SCH (08:54)
[2021-01-16] MEDS: BENZTROPINE MESYLATE 1 MG TABLET PO SCH ×3 (08:54→16:48)
[2021-01-16] MEDS: AMANTADINE HCL 100 MG CAPSULE PO SCH ×2 (08:54→20:20)
[2021-01-16] MEDS: HALOPERIDOL 5 MG TABLET PO SCH ×3 (08:54→16:48)
[2021-01-16] MEDS: OMEGA-3 FATTY ACIDS/FISH OIL CAPSULE PO SCH (08:54)
[2021-01-16] MEDS: ENSURE ENLIVE (VAN) 240 ML LIQUID PO SCH ×3 (08:55→16:49)
[2021-01-16] MEDS: METHADONE HCL 10 MG TABLET PO SCH ×2 (08:55→16:49)
[2021-01-16] MEDS: NEOMY/BACITRAC/POLYMI OINT 28.35 GM TUBE TOP SCH (08:57)
[2021-01-16] MEDS: MIRALAX 17 GM POWD.PACK PO SCH (08:57)
[2021-01-16] MEDS ORDERED: HALOPERIDOL DECANOATE 50 MG/1 ML AMPUL IM SCH (09:00)
--- NOTE | 2021-01-16 11:39 | NUR ---
Treatment Plan Patient refused to sign treatment plan due to disorganized thought process.
[2021-01-16 16:08] VITALS: BP 98/72
--- NOTE | 2021-01-16 18:24 | NUR ---
GPS: Nursing Notes: Destructive Behavior to Self: Patient is awake and responding to her name, poor impulse control, loud and pressured speech, flashing her body in front of the nursing station, overly disruptive by shouting, redirected and setting limits, but continue with poor impulse control, argumentative, overly demanding, bizarre behavior, peeling her scabs and smearing the leonardo with her blood, denies SI/HI, denies AH/VH at this time, redirected and reoriented during shift, encouraged to be compliant with her medications, attention seeking behavior at times, gets easily anxious and irritable when redirected, unable to formulate a viable plan for self care, internally preoccupied, continue to monitor for safety, continue with treatment plan.
[2021-01-16 20:13] VITALS: BP 100/70
[2021-01-16] MEDS: ZOLPIDEM 5 MG TABLET PO PRN (21:57)
--- NOTE | 2021-01-16 23:16 | NUR ---
GPS: Pt.remains awake at this time. Sleeping pill given earlier ineffective. Got out of bed x2 to go to the nurses station without any pants on. Poor impulse control. Easily agitated when being re-directed. Safe environment provided. Denies SI. Will continue to monitor behavior.
[2021-01-17] MEDS: ACETAMINOPHEN 325 MG TABLET PO PRN ×2 (00:34→09:58)
[2021-01-17] MEDS: LORAZEPAM 1 MG TABLET PO PRN ×3 (00:48→19:37)
--- NOTE | 2021-01-17 00:48 | NUR ---
GPS: Remains awake,anxious,restless and positive for auditory hallucinations. Pt.states that voices are telling her that she's "no good" .Re-directed and re-assured. Denies wanting to hurt self. Ativan 1mg PO given. Will monitor effectiveness.
[2021-01-17] MEDS ORDERED: LORAZEPAM 2 MG/1 ML VIAL IV STA (04:13)
[2021-01-17] MEDS ORDERED: diphenhydrAMINE 50 MG/1 ML VIAL IM STA (04:13)
[2021-01-17] MEDS ORDERED: HALOPERIDOL LACTATE 5 MG/1 ML VIAL IM STA (04:13)
[2021-01-17] MEDS ORDERED: diphenhydrAMINE 50 MG/1 ML VIAL IM ONE (04:19)
--- NOTE | 2021-01-17 04:31 | NUR ---
Chemical Restraint Note: Pt came running down the hallway partially disrobed, screaming about a "blue dress" at approximately 0410. Pt was told to put her robe on, and she screamed louder, "fuck all of you bitches, I'm going to take this whole fucking place down, you're all going to burn!". Pt was erratic, agitated, verbally aggressive, and threatening toward staff. Pt postured toward this singer songwriter as if she were going to strike. Pt then ran back to her room still screaming, and began throwing objects at staff. Pt was not receptive to verbal redirection or de-escalation techniques. All PRNs were administered by this point, and Pt refused to calm. Dr Bell notified of Pt's behavior, and Haldol 5mg, Benadryl 25mg, and Ativan 2mg IM ordered. Pt was cooperative with IM administration, hands on the Pt only for stabilization during the injection to the (R) buttock. Pt tolerated the IM well, and called within 5 minutes if administration. Pt refused follow up vital signs, but is breathing even and unlabored at this time. Will continue to monitor.
[2021-01-17] MEDS: SUCRALFATE 1 G TABLET PO SCH ×4 (06:16→20:00)
[2021-01-17] MEDS: PANTOPRAZOLE SODIUM 40 MG TABLET.DR PO SCH (06:16)
[2021-01-17] MEDS: LEVOTHYROXINE SODIUM 100 MCG TABLET PO SCH (06:16)
[2021-01-17 07:30] VITALS: BP 110/82
[2021-01-17] MEDS: AMANTADINE HCL 100 MG CAPSULE PO SCH ×2 (08:40→20:00)
[2021-01-17] MEDS: DOXYCYCLINE HYCLATE 100 MG TABLET PO SCH ×2 (08:40→20:00)
[2021-01-17] MEDS: NICOTINE 21 MG/24HR PATCH TD SCH (08:40)
[2021-01-17] MEDS: HALOPERIDOL 5 MG TABLET PO SCH ×3 (08:41→16:27)
[2021-01-17] MEDS: BENZTROPINE MESYLATE 1 MG TABLET PO SCH ×3 (08:41→16:27)
[2021-01-17] MEDS: OMEGA-3 FATTY ACIDS/FISH OIL CAPSULE PO SCH (08:41)
[2021-01-17] MEDS: METHADONE HCL 10 MG TABLET PO SCH ×3 (08:41→16:27)
[2021-01-17] MEDS: NEOMY/BACITRAC/POLYMI OINT 28.35 GM TUBE TOP SCH (08:42)
[2021-01-17] MEDS: MIRALAX 17 GM POWD.PACK PO SCH (08:42)
[2021-01-17] MEDS: ENSURE ENLIVE (VAN) 240 ML LIQUID PO SCH ×3 (08:42→16:28)
--- NOTE | 2021-01-17 10:12 | NUR ---
GPS: Nursing Notes: Severe Agitation: Patient is awake and responding to her name, overly disruptive by constantly shouting profanities to staff "FUCK YOU...", believes that the boyfriend had left her, asking for ice water, but when she gets the water, she is throwing the ice toward the staff, throwing her blanket on the floor, disrobing in her room, peeling the scabs off her face, setting limits, but continue to be overly disruptive by shouting, unable to be redirected, shouting "NOBODY FUCKING WANTS ME.. THAT FUCKEN ASSHOLE LEFT ME.. I AM ALONE..", restless behavior, attention seeking behavior, psychotic, poor impulse control, poor anger management, shouting "I WANT TO SMOKE... I GIVE YOU MONEY TO BUY ME CIGARETTES...", Dr. Ray rico, R=18, continue to monitor patient for safety, continue with treatment plan.
[2021-01-17] MEDS ORDERED: OLANZAPINE 10 MG VIAL IM ONE (10:15)
--- NOTE | 2021-01-17 10:28 | NUR ---
GPS: Nursing Notes: Chemical Restraint: Patient continue to be overly disruptive by shouting profanities toward staff and disrupting the unit by going into other patient's room and screaming, poor anger management, restless behavior, posturing toward staff, verbal abusive, threatening staff, destroying property, Dr. Bell called and ordered: Zyprexa 10mg IM STAT for severe agitation, R=18, continue to monitor for safety, continue with treatment plan.
--- NOTE | 2021-01-17 10:58 | NUR ---
GPS: Nursing Notes: Reassessment of Chemical Restraint: Patient is awake and responding to her name, poor impulse control, but patient slow down, became calm, following staff directions, but episodes of disrobing at times. she mad a mess of her room, EVS came and clean the room, bizarre behavior, continue to monitor for safety, R=18, IM medication was helpful, continue with treatment plan.
--- NOTE | 2021-01-17 14:18 | NUR ---
GPS: Nursing Notes: Destructive Behavior to Self: Patient is awake and responding to her name, poor impulse control, responding to internal stimuli by talking to unseen others, episodes of taking a nap, but suddenly awakes and shouting "WHERE IS MY CELL PHONE.. SOMEONE STOLE MY PHONE..", redirected and reoriented to reality, but patient is in disbelieves regarding her phone, stated "I WAS TALKING TO SOMEONE..", gets easily anxious and irritable when redirected, A/Ox2, impaired judgment, disorganized, episodes of disrobing, flashing her breast to staff, redirected and setting limits, unable to formulate a viable plan for self care, continue with treatment plan.
[2021-01-17 15:09] VITALS: BP 100/63
--- NOTE | 2021-01-17 15:22 | NUR ---
Patient is throwing herself on the floor, constantly at the nurse's station making paranoid statements to nurses and accusing nurses of stealing her belongings, cursing and threatening nurses. Patient was redirected to her assigned room multiple times and provided with reality orientation and diversional activities, but patient is refusing to accept limit setting from staff and continues being threatening, agitated, and noted with paranoid delusions.
--- NOTE | 2021-01-17 19:35 | NUR ---
GPS: Desktop Support Engineer found pills on the floor by pt's bed. Communicated to outgoing charge nurse. Staff to make sure pt.is swallowing her meds.and not cheeking them.
[2021-01-17 20:05] VITALS: BP 113/85
[2021-01-17] MEDS: ZOLPIDEM 5 MG TABLET PO PRN (21:22)
--- NOTE | 2021-01-17 22:45 | NUR ---
GPS: Pt. remains anxious,restless,disorganized,and with poor impulse control. Needs constant re-direction and limit setting from staff. All prn PO meds have been given with little effect. Wanders from room to room and is easily irritable when being re-directed. No striking out behavior noted. Denies wanting to harm self. Safe environment provided. Reminded to take all her meds.prescribed and discouraged from cheeking her meds. Will continue to monitor.
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
[2021-01-18] MEDS ORDERED: LORAZEPAM 2 MG/1 ML VIAL IM STA (02:03)
[2021-01-18] MEDS ORDERED: OLANZAPINE 10 MG VIAL IM ONE (02:15)
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
[2021-01-18] MEDS: LEVOTHYROXINE SODIUM 100 MCG TABLET PO SCH (06:06)
[2021-01-18] MEDS: PANTOPRAZOLE SODIUM 40 MG TABLET.DR PO SCH (06:06)
[2021-01-18] MEDS: LORAZEPAM 1 MG TABLET PO PRN ×3 (06:06→22:39)
[2021-01-18] MEDS: SUCRALFATE 1 G TABLET PO SCH ×4 (06:31→20:28)
--- NOTE | 2021-01-18 06:31 | NUR ---
GPS: Pt.is anxious,restless,demanding and easily irritable when being re-directed. Poor impulse control. Paranoid,suspicious and has disorganized thoughts. Accusing staff of stealing her belongings. Re-directed frequently. Ativan 1 mg PO given for increased anxiety. Will continue to monitor behavior.
--- NOTE | 2021-01-18 06:51 | NUR ---
GPS: Pt.slept 6.45 last night and currently in bed at this time. Due meds.given and taken. Re-directed and re-assured prn. Safety emphasized. Will continue to monitor.
[2021-01-18 07:30] VITALS: BP 129/84
[2021-01-18] MEDS: METHADONE HCL 10 MG TABLET PO SCH ×2 (08:33→17:29)
[2021-01-18] MEDS: AMANTADINE HCL 100 MG CAPSULE PO SCH ×2 (08:33→20:28)
[2021-01-18] MEDS: HALOPERIDOL 5 MG TABLET PO SCH ×3 (08:33→17:29)
[2021-01-18] MEDS: BENZTROPINE MESYLATE 1 MG TABLET PO SCH ×3 (08:33→17:29)
[2021-01-18] MEDS: OMEGA-3 FATTY ACIDS/FISH OIL CAPSULE PO SCH (08:33)
[2021-01-18] MEDS: DOXYCYCLINE HYCLATE 100 MG TABLET PO SCH ×2 (08:33→20:28)
[2021-01-18] MEDS: NICOTINE 21 MG/24HR PATCH TD SCH (08:33)
[2021-01-18] MEDS: MIRALAX 17 GM POWD.PACK PO SCH (08:34)
[2021-01-18] MEDS: NEOMY/BACITRAC/POLYMI OINT 28.35 GM TUBE TOP SCH (08:34)
[2021-01-18] MEDS: ENSURE ENLIVE (VAN) 240 ML LIQUID PO SCH ×3 (08:42→17:35)
--- NOTE | 2021-01-18 09:35 | NUR ---
GPS: PT ON BED DURING ROUNDS, SLEEPING. ATE BREAKFAST AND GIVEN MEDICATION AND TOLERATED WELL. PT WITH AGITATION WHEN PRECISION GRINDER EXTERNAL GETTING THE FOOD TRAY. PT HELD THE FOOD AND MASHING IT TO THE TRAY. PT STATING " I DONT LIKE YOU, GO AWAY!". BOYFRIENYudelka ALEXANDER CALLED ASKING FOR PT CONDITION. ASKING PSYCHIATRIST TO CALL HIM ANYTIME.
--- NOTE | 2021-01-18 14:02 | NUR ---
SW Substance Abuse Assessment SW met with pt to complete Substance Abuse/Chemical Dependency Brief Interventions. Pt refused brief interventions at this time and denies any substance use, drug use, or alcohol consumption. Pt reports she is receiving suboxone treatment for pain. Pt refused referral for substance abuse follow up treatment services at this time.
--- NOTE | 2021-01-18 14:15 | NUR ---
GPS: PT ANXIOUS AND AGITATED, PACING THE HALLWAY. PT REQUESTED FOR ATIVAN. GIVEN AND TOLERATED WELL. WILL MONITOR PT. INFORMED PT THAT MAHNAZ ALEXANDER WILL BE CALLING HER AFTER 7PM TONIGHT. CATHERINE ALSO REQUESTING TO SPEAK WITH PSYCHIATRIST FOR PT CONDITION.
[2021-01-18 16:00] VITALS: BP 109/62
[2021-01-18 20:03] VITALS: BP 129/81
[2021-01-18] MEDS: CLONAZEPAM 1 MG TABLET PO SCH (20:30)
--- NOTE | 2021-01-19 01:14 | NUR ---
Received to care, at start of shift, in her room, lying on bed, pleasant, talking to boyfriend on the telephone. After finishing her phone call, she was pleasant appropriate, and cooperative. She seemed slightly anxious, but her behavior was manageable. She took her medications as ordered, and went to sleep. she came to the nurses station, appearing more restless, doing a marching motion, at 2239, requesting decaf tea, and an Ativan. she was given both, and went back to sleep, and continues to sleep, at this time. No distress noted.
--- NOTE | 2021-01-19 05:58 | NUR ---
slept 6.75 hours. continues to sleep. no distress noted.
[2021-01-19] MEDS: LEVOTHYROXINE SODIUM 100 MCG TABLET PO SCH (06:31)
[2021-01-19] MEDS: PANTOPRAZOLE SODIUM 40 MG TABLET.DR PO SCH (06:31)
[2021-01-19 07:48] VITALS: BP 117/52
[2021-01-19] MEDS: SUCRALFATE 1 G TABLET PO SCH ×4 (08:19→20:00)
[2021-01-19] MEDS: MIRALAX 17 GM POWD.PACK PO SCH (08:19)
[2021-01-19] MEDS: AMANTADINE HCL 100 MG CAPSULE PO SCH ×2 (08:20→20:00)
[2021-01-19] MEDS: OMEGA-3 FATTY ACIDS/FISH OIL CAPSULE PO SCH (08:20)
[2021-01-19] MEDS: DOXYCYCLINE HYCLATE 100 MG TABLET PO SCH ×2 (08:20→20:00)
[2021-01-19] MEDS: HALOPERIDOL 5 MG TABLET PO SCH ×3 (08:20→17:21)
[2021-01-19] MEDS: BENZTROPINE MESYLATE 1 MG TABLET PO SCH ×3 (08:20→17:21)
[2021-01-19] MEDS: METHADONE HCL 10 MG TABLET PO SCH ×2 (08:21→17:49)
[2021-01-19] MEDS: NICOTINE 21 MG/24HR PATCH TD SCH (08:21)
[2021-01-19] MEDS: ENSURE ENLIVE (VAN) 240 ML LIQUID PO SCH ×3 (08:22→17:22)
[2021-01-19] MEDS: NEOMY/BACITRAC/POLYMI OINT 28.35 GM TUBE TOP SCH (08:22)
--- NOTE | 2021-01-19 10:47 | NUR ---
RECEIVED PATIENT AT THE START OF THE SHIFT AT 0700H. SHE IS COOPERATIVE WITH CARE. DENIES HARM TO SELF. ALL DUE MEDICATIONS GIVEN ORDERED. SHE WANDERS THE HALLWAYS, ANXIOUS. NO DISTRESS IDENTIFIED. WILL ENDORSE TO THE OTHER RN FOR CONTINUITY OF CARE.
--- NOTE | 2021-01-19 13:02 | NUR ---
GPS: PT SPOKE WITH PT RIGHTS ADVOCATE OVER THE PHONE. WILL CONTINUE ON 14 DAY HOLD.
--- NOTE | 2021-01-19 14:09 | NUR ---
GPS: HEARING DONE TODAY FOR 14 DAY HOLD AND PT WILL BE ON HOLD DUE TO DTS AND GDA.
[2021-01-19] MEDS: LORAZEPAM 1 MG TABLET PO PRN (15:09)
--- NOTE | 2021-01-19 15:12 | NUR ---
GPS: PT FEELS ANXIOUS AND OVER EXCITED, THINKING THAT SHE'LL BE DISCHARGE BY SATURDAY WHAT SHE HEARD DURING A PT RIGHT'S MEETING WITH HER OVER THE PHONE. REQUESTED FOR AN ATIVAN. GIVEN AND TOLERATED WELL.
[2021-01-19 16:05] VITALS: BP 114/75
[2021-01-19 20:00] VITALS: BP 101/62
[2021-01-19] MEDS: CLONAZEPAM 1 MG TABLET PO SCH (20:01)
[2021-01-19] MEDS ORDERED: LORAZEPAM 2 MG/1 ML VIAL IM ONE (20:45)
[2021-01-19] MEDS ORDERED: OLANZAPINE 10 MG VIAL IM ONE (20:45)
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
--- NOTE | 2021-01-20 06:00 | NUR ---
slept 8.75 hours, total. was at nurses station a few times, but was redirectable, in her behavior. as of now, she is awake, and calm. no distress noted.
[2021-01-20] MEDS: PANTOPRAZOLE SODIUM 40 MG TABLET.DR PO SCH (07:07)
[2021-01-20] MEDS: LEVOTHYROXINE SODIUM 100 MCG TABLET PO SCH (07:07)
[2021-01-20 07:30] VITALS: BP 108/59
[2021-01-20 07:47] VITALS: BP 108/59
[2021-01-20] MEDS: OMEGA-3 FATTY ACIDS/FISH OIL CAPSULE PO SCH (08:14)
[2021-01-20] MEDS: HALOPERIDOL 5 MG TABLET PO SCH ×3 (08:14→16:34)
[2021-01-20] MEDS: DOXYCYCLINE HYCLATE 100 MG TABLET PO SCH (08:14)
[2021-01-20] MEDS: NICOTINE 21 MG/24HR PATCH TD SCH (08:14)
[2021-01-20] MEDS: BENZTROPINE MESYLATE 1 MG TABLET PO SCH ×3 (08:14→16:35)
[2021-01-20] MEDS: MIRALAX 17 GM POWD.PACK PO SCH (08:15)
[2021-01-20] MEDS: ENSURE ENLIVE (VAN) 240 ML LIQUID PO SCH ×3 (08:15→16:38)
[2021-01-20] MEDS: AMANTADINE HCL 100 MG CAPSULE PO SCH ×2 (08:15→20:21)
[2021-01-20] MEDS: SUCRALFATE 1 G TABLET PO SCH ×4 (08:15→20:21)
[2021-01-20] MEDS: MAGNESIUM HYDROXIDE 30 ML LIQUID UDC PO PRN (08:55)
[2021-01-20] MEDS: NEOMY/BACITRAC/POLYMI OINT 28.35 GM TUBE TOP SCH (09:25)
[2021-01-20] MEDS: METHADONE HCL 10 MG TABLET PO SCH ×2 (09:26→16:35)
[2021-01-20] MEDS: LORAZEPAM 1 MG TABLET PO PRN ×2 (09:48→17:56)
--- NOTE | 2021-01-20 09:52 | NUR ---
GPS: PT ACTING OUT AND NEEDY AND BANGED THE HEAD ON THE DOOR TO GET ATTENTION AND WHAT SHE NEEDS LIKE HER LAUNDRY CLOTHES. PT SCREAMING AT THE HALLWAY AND ROOM. GIVEN ATIVAN AND TOOK IT PROVIDED SHE WANTS A PHONE CALL. PT TOOK MEDICATION AND TOLERATED WELL. WILL MONITOR.
[2021-01-20 15:55] VITALS: BP 97/62
--- NOTE | 2021-01-20 17:05 | NUR ---
GPS: PT WITH EPISODE OF BEING NEEDY AND PURPOSELY DO SOME ACTING OUT WHEN NEEDS ISN'T MEET. PT GIVEN MEDICATION AND TOLERATED WELL. SOMETIMES FOLLOWS COMMANDS.
[2021-01-20 20:04] VITALS: BP 104/53
[2021-01-20] MEDS: CLONAZEPAM 1 MG TABLET PO SCH (20:21)
[2021-01-20] MEDS ORDERED: QUETIAPINE FUMARATE 100 MG TABLET PO SCH (21:00)
[2021-01-21] MEDS: LORAZEPAM 1 MG TABLET PO PRN ×2 (04:48→12:58)
--- NOTE | 2021-01-21 04:59 | NUR ---
received to care at start of shift, agitated and labile, yelling at times, difficult to redirect. appearing distracted by internal stimuli. Paranoid and delusional. Layed herself on floor, verbally abusive, to staff. Became unsteady in her gait and appeared to be having visual hallucinations, talking to unseen entities, and picking at the air, after taking her bedtime medications. She was then placed in the namita chair at the nurses station, for safety. She has slept intermittently, all night, assisted to the bathroom, as needed. snacks and fluids were given. PRN ativan was given at 0448, due to continuing escalating behavior, and inability to be redirected. She continues to have visual hallucinations, and yell out intermittently. Remains in the namita chair at nurses station, for safety.
[2021-01-21] MEDS: PANTOPRAZOLE SODIUM 40 MG TABLET.DR PO SCH (06:27)
[2021-01-21] MEDS: LEVOTHYROXINE SODIUM 100 MCG TABLET PO SCH (06:27)
--- NOTE | 2021-01-21 06:53 | NUR ---
slept 2 hours total. remains unsteady. monitored closely for safety.
[2021-01-21 07:35] VITALS: BP 103/66
[2021-01-21] MEDS: OMEGA-3 FATTY ACIDS/FISH OIL CAPSULE PO SCH (08:29)
[2021-01-21] MEDS: BENZTROPINE MESYLATE 1 MG TABLET PO SCH ×3 (08:29→17:05)
[2021-01-21] MEDS: HALOPERIDOL 5 MG TABLET PO SCH ×3 (08:29→17:05)
[2021-01-21] MEDS: NICOTINE 21 MG/24HR PATCH TD SCH (08:30)
[2021-01-21] MEDS: AMANTADINE HCL 100 MG CAPSULE PO SCH ×2 (08:30→23:12)
[2021-01-21] MEDS: SUCRALFATE 1 G TABLET PO SCH ×4 (08:30→23:12)
[2021-01-21] MEDS: METHADONE HCL 10 MG TABLET PO SCH ×2 (08:30→17:05)
[2021-01-21] MEDS: MIRALAX 17 GM POWD.PACK PO SCH (08:30)
[2021-01-21] MEDS: NEOMY/BACITRAC/POLYMI OINT 28.35 GM TUBE TOP SCH (08:31)
[2021-01-21] MEDS: ENSURE ENLIVE (VAN) 240 ML LIQUID PO SCH ×3 (08:37→17:44)
--- NOTE | 2021-01-21 09:09 | NUR ---
GPS: RECEIVED PT ON RICK CHAIR. PT WAS UNSTEADY LAST NIGHT AFTER A REACTION FROM SEROQUEL. PT MANAGED TO AMBULATE AFTER AND WENT TO HER ROOM AND HAD HER BREAKFAST. PT ATE GOOD AND GIVEN MEDICATION AND TOLERATED WELL. PT WITH NEW NICOTINE PATCH ON LEFT ARM. PT WENT BACK TO BED. NO AGITATION AT THIS TIME.
[2021-01-21] MEDS: LITHIUM CARBONATE 300 MG CAPSULE PO SCH ×2 (12:27→21:48)
--- NOTE | 2021-01-21 13:01 | NUR ---
GPS: PT AGITATED, ANXIOUS AND STRIPPED HER CLOTHES OFF AT HALLWAY. PT NEEDY AND ATTENTION SEEKING, ASKING FOR ALL THINGS SHE CAN THINK OF. OFFERED ATIVAN AND TOLERATED WELL. GIVEN ALL SCHEDULED MEDS DURING LUNCH TIME. PT STAYING ON BED.
--- NOTE | 2021-01-21 18:43 | NUR ---
GPS:PT PACING THE HALLWAY AND GETTING STAFF'S ATTENTION, ASKING FOR ALL SORTS OF THINGS. PT ALSO STAYS IN THE ROOM SOMETIMES YELLING. REDIRECTED PT.
[2021-01-21] MEDS: CLONAZEPAM 1 MG TABLET PO SCH (20:21)
[2021-01-21] MEDS ORDERED: AMANTADINE HCL 100 MG CAPSULE ONE (22:47)
[2021-01-21] MEDS ORDERED: SUCRALFATE 1 G TABLET ONE (22:54)
[2021-01-22] MEDS: PANTOPRAZOLE SODIUM 40 MG TABLET.DR PO SCH (06:14)
[2021-01-22] MEDS: LEVOTHYROXINE SODIUM 100 MCG TABLET PO SCH (06:14)
[2021-01-22] MEDS: BENZTROPINE MESYLATE 1 MG TABLET PO SCH ×3 (08:18→16:56)
[2021-01-22] MEDS: MIRALAX 17 GM POWD.PACK PO SCH (08:18)
[2021-01-22] MEDS: HALOPERIDOL 5 MG TABLET PO SCH ×3 (08:18→16:56)
[2021-01-22] MEDS: OMEGA-3 FATTY ACIDS/FISH OIL CAPSULE PO SCH (08:18)
[2021-01-22] MEDS: LITHIUM CARBONATE 300 MG CAPSULE PO SCH ×2 (08:18→20:56)
[2021-01-22] MEDS: METHADONE HCL 10 MG TABLET PO SCH ×2 (08:18→18:06)
[2021-01-22] MEDS: NICOTINE 21 MG/24HR PATCH TD SCH (08:18)
[2021-01-22] MEDS: NEOMY/BACITRAC/POLYMI OINT 28.35 GM TUBE TOP SCH (08:20)
[2021-01-22] MEDS: AMANTADINE HCL 100 MG CAPSULE PO SCH ×2 (08:20→20:57)
[2021-01-22] MEDS: SUCRALFATE 1 G TABLET PO SCH ×4 (08:20→20:57)
[2021-01-22] MEDS: ENSURE ENLIVE (VAN) 240 ML LIQUID PO SCH ×3 (08:21→17:12)
--- NOTE | 2021-01-22 14:35 | NUR ---
received patient is restless, belligerent screaming in hallway, difficult to redirect.compliant with all medication monitored closely for safety.
[2021-01-22 16:39] VITALS: BP 93/65
[2021-01-22] MEDS: LORAZEPAM 1 MG TABLET PO PRN (16:56)
--- NOTE | 2021-01-22 18:32 | NUR ---
while patient walking in hallway then put self on the floor intentional , able to get up from floor by self, no injury noted. yelling and screaming toward to staffs, re-directed to namita-chair for close monitoring.
[2021-01-22] MEDS: CLONAZEPAM 1 MG TABLET PO SCH (20:56)
--- NOTE | 2021-01-22 21:47 | NUR ---
RECEIVED PATIENT IN HER ROOM IN BED. SHE IS NOTED AWAKE, A/O X 1. SHE IS NOTED EASILY IRRITABLE, SHE IS A POOR HISTORIAN, LABILE RESPONDING TO INTERNAL STIMULI. SHE IS NOTED WEARING CLOTHES THAT ARE STAINED WITH JUICE AND SHE REFUSED TO CHANGED IT. HER ROOM'S FLOOR IS DIRTY AND HER BED SIDE TABLE IS MESSY. SHE ALSO REFUSED V/S. SHE IS HARD TO REDIRECT, SHE STATED, "GET OUT OF MY ROOM, DON'T TOUCH MY STUFF, YOU ARE IRRITATING ME". PT. REQUIRED MULTIPLE REDIRECTIONS. SAFETY AND FALL PRECAUTION ARE IN PLACE. SHE IS COMPLIANT WITH MEDICATION REGIMENT AT THIS ME. SHE WAS GIVEN PO FLUIDS AND SNACKS . WILL CONTINUE TO MONITOR.
[2021-01-23] MEDS: LORAZEPAM 1 MG TABLET PO PRN ×3 (05:59→23:36)
[2021-01-23] MEDS: PANTOPRAZOLE SODIUM 40 MG TABLET.DR PO SCH (06:24)
[2021-01-23] MEDS: LEVOTHYROXINE SODIUM 100 MCG TABLET PO SCH (06:25)
--- NOTE | 2021-01-23 06:42 | NUR ---
patient slept for approx 6 hrs through the night. Staff was changing her sheets and blanket and cleaning her room when she started yelling at nursing staff and telling them to get out of her room. she was observed crying and yelling. Ativan 1mg PO was given about 1/2 hr ago. she is now sitting in her room calm. will continue to monitor.
[2021-01-23] MEDS: SUCRALFATE 1 G TABLET PO SCH ×4 (07:30→20:00)
[2021-01-23 07:38] VITALS: BP 119/90
[2021-01-23] MEDS: LITHIUM CARBONATE 300 MG CAPSULE PO SCH ×3 (08:10→16:47)
[2021-01-23] MEDS: MIRALAX 17 GM POWD.PACK PO SCH (08:11)
[2021-01-23] MEDS: METHADONE HCL 10 MG TABLET PO SCH ×2 (08:11→16:47)
[2021-01-23] MEDS: OMEGA-3 FATTY ACIDS/FISH OIL CAPSULE PO SCH (08:11)
[2021-01-23] MEDS: BENZTROPINE MESYLATE 1 MG TABLET PO SCH ×3 (08:11→16:47)
[2021-01-23] MEDS: NICOTINE 21 MG/24HR PATCH TD SCH (08:11)
[2021-01-23] MEDS: NEOMY/BACITRAC/POLYMI OINT 28.35 GM TUBE TOP SCH (08:12)
[2021-01-23] MEDS: AMANTADINE HCL 100 MG CAPSULE PO SCH ×2 (08:12→20:00)
[2021-01-23] MEDS: HALOPERIDOL 5 MG TABLET PO SCH ×4 (08:13→16:48)
[2021-01-23] MEDS: ENSURE ENLIVE (VAN) 240 ML LIQUID PO SCH ×3 (09:32→16:51)
[2021-01-23 15:43] VITALS: BP 96/57
--- NOTE | 2021-01-23 17:13 | NUR ---
Patient is alert, oriented X 2 to person, place. Pt. affect is demanding, needy, dramatic, anxious. Ativan 1 mg given at 14:35 for anxiety, semi effective. Pt. is refusing Haldol. Pt. states that Haldol makes her unsteady. Emotional support given. Denies SI/HI AH/VH. Fall and safety precautions implemented.
[2021-01-23] MEDS: MAGNESIUM HYDROXIDE 30 ML LIQUID UDC PO PRN (17:20)
[2021-01-23] MEDS: CLONAZEPAM 1 MG TABLET PO SCH (20:00)
[2021-01-23 20:43] VITALS: BP 134/62
[2021-01-24] MEDS: PANTOPRAZOLE SODIUM 40 MG TABLET.DR PO SCH ×2 (06:31→07:00)
[2021-01-24] MEDS: SUCRALFATE 1 G TABLET PO SCH ×5 (06:31→20:26)
[2021-01-24] MEDS: LEVOTHYROXINE SODIUM 100 MCG TABLET PO SCH ×2 (06:31→07:00)
--- NOTE | 2021-01-24 06:50 | NUR ---
Patient slept for approx. 4.00 hrs through the night. She continue irritable, demanding, labile, and psychotic. she required redirection and reality check. will continue to monitor.
[2021-01-24 07:54] VITALS: BP 103/61
[2021-01-24 07:54] LABS: HEMATOCRIT 32.7 % (31.2-41.9); MEAN CORPUSCULAR HEMOGLOBIN 31.4 uug (24.7-32.8); MEAN CORPUSCULAR VOLUME 92.5 fL (75.5-95.3); PLATELET COUNT (AUTO) 209 K/uL (179-408)
[2021-01-24] MEDS: OMEGA-3 FATTY ACIDS/FISH OIL CAPSULE PO SCH (08:02)
[2021-01-24] MEDS: BENZTROPINE MESYLATE 1 MG TABLET PO SCH ×3 (08:02→17:27)
[2021-01-24] MEDS: METHADONE HCL 10 MG TABLET PO SCH ×2 (08:03→17:28)
[2021-01-24] MEDS: LITHIUM CARBONATE 300 MG CAPSULE PO SCH ×3 (08:03→17:27)
[2021-01-24] MEDS: NICOTINE 21 MG/24HR PATCH TD SCH (08:04)
[2021-01-24] MEDS: NEOMY/BACITRAC/POLYMI OINT 28.35 GM TUBE TOP SCH (08:04)
[2021-01-24] MEDS: AMANTADINE HCL 100 MG CAPSULE PO SCH ×2 (08:04→20:26)
[2021-01-24 08:06] LABS: CREATININE 0.9 mg/dL (0.6-1.3); POTASSIUM 4.1 mmol/L (3.5-5.1)
[2021-01-24] MEDS: HALOPERIDOL 5 MG TABLET PO SCH (08:16)
[2021-01-24] MEDS: MIRALAX 17 GM POWD.PACK PO SCH (08:20)
[2021-01-24] MEDS: ENSURE ENLIVE (VAN) 240 ML LIQUID PO SCH ×3 (09:03→17:35)
[2021-01-24] MEDS: risperiDONE 1 MG TABLET PO SCH ×2 (09:39→17:27)
[2021-01-24 16:00] VITALS: BP 91/57
--- NOTE | 2021-01-24 17:42 | NUR ---
Pt. is A/O X 2 - 3 to person, place. Pt. affect is anxious, needy, restless, attention seeking, labile, agitated at times. Compliant with medications. Continent with bladder and bowel.
[2021-01-24] MEDS: LORAZEPAM 1 MG TABLET PO PRN (18:04)
[2021-01-24 19:59] VITALS: BP 101/51
[2021-01-24] MEDS: CLONAZEPAM 1 MG TABLET PO SCH (20:26)
[2021-01-25] MEDS: ACETAMINOPHEN 325 MG TABLET PO PRN ×2 (00:27→20:48)
[2021-01-25] MEDS: LORAZEPAM 1 MG TABLET PO PRN ×3 (02:26→22:19)
--- NOTE | 2021-01-25 04:06 | NUR ---
Patient has been up most of the night. Needy, attention seeking, manipulative with no regard for the unit rules. Medications appears to be ineffective. Patient continues to be delusional, hit self in the face, and does not respond to redirection. Patient is demanding and verbally insulting to the staff. This patient has been unrelenting with the staff in term of requests and neediness. This pattern chart writer was unable to engage the patient in any meaningful conversation. Continuing to monitor patient closely for safety d/t the patients unsteady gait and poor impulse control. Sleep hours so far have been minimal.
[2021-01-25] MEDS: PANTOPRAZOLE SODIUM 40 MG TABLET.DR PO SCH (06:11)
[2021-01-25] MEDS: LEVOTHYROXINE SODIUM 100 MCG TABLET PO SCH (06:11)
[2021-01-25] MEDS: SUCRALFATE 1 G TABLET PO SCH ×4 (06:11→20:45)
[2021-01-25 07:30] VITALS: BP 98/63
[2021-01-25] MEDS: risperiDONE 1 MG TABLET PO SCH ×2 (08:49→16:57)
[2021-01-25] MEDS: LITHIUM CARBONATE 300 MG CAPSULE PO SCH ×3 (08:50→16:57)
[2021-01-25] MEDS: OMEGA-3 FATTY ACIDS/FISH OIL CAPSULE PO SCH (08:50)
[2021-01-25] MEDS: METHADONE HCL 10 MG TABLET PO SCH ×2 (08:50→17:16)
[2021-01-25] MEDS: BENZTROPINE MESYLATE 1 MG TABLET PO SCH ×3 (08:51→16:57)
[2021-01-25] MEDS: ENSURE ENLIVE (VAN) 240 ML LIQUID PO SCH ×3 (08:51→16:58)
[2021-01-25] MEDS: NEOMY/BACITRAC/POLYMI OINT 28.35 GM TUBE TOP SCH (08:52)
[2021-01-25] MEDS: NICOTINE 21 MG/24HR PATCH TD SCH (08:52)
[2021-01-25] MEDS: MIRALAX 17 GM POWD.PACK PO SCH (08:52)
[2021-01-25] MEDS: AMANTADINE HCL 100 MG CAPSULE PO SCH ×2 (08:53→20:45)
[2021-01-25 16:00] VITALS: BP 121/84
--- NOTE | 2021-01-25 18:44 | NUR ---
GPS: PT NOTED WITH ACTING UP TODAY. THROWING HERSELF ON THE FLOOR WHEN NEEDS NOT MET. REDIRECTED PT AND ENCOURAGED PT NOT TO GO INSIDE OTHER PT ROOM. GIVEN ATIVAN AND LOOKS LIKE ITS ONLY EFFECTIVE FOR A FEW MINUTES AND PT STILL YELLS AND SCREAMS ON THE HALLWAY. PT SEEN THROWING HERSELF OVER THE FLOOR.
[2021-01-25 20:00] VITALS: BP 130/81
[2021-01-25] MEDS: CLONAZEPAM 1 MG TABLET PO SCH (20:45)
[2021-01-25] MEDS ORDERED: OLANZAPINE 10 MG VIAL IM STA (23:00)
--- NOTE | 2021-01-25 23:00 | NUR ---
received to care, at start of shift, restless at times, needy and attention seeking, requiring frequent redirection. Observed to be wandering into peers rooms. Gait was unsteady, at times. Hyperverbal, yelling, going rapidly from subject, to subject. Placed in the namita chair at nurses station, for safety. PRN ativan was given at 2217. As of 2299, she is even more difficult to manage, yelling and screaming, using inappropriate language, attempting to eat her feces, becoming increasingly loud, and unable to be redirected. Dr eBll was called at 2299, and orders were received, for IM Zyprexa 10 MG. awaiting pharmacy approval, to carry out order.
--- NOTE | 2021-01-25 23:35 | NUR ---
IM stat administered as ordered on the right deltoid. Chemical restraint protocol in place. Will monitor for safety.
--- NOTE | 2021-01-26 00:10 | NUR ---
Appears to be sleeping restfully. No distress, noted. Will continue to monitor closely.
[2021-01-26] MEDS: LORAZEPAM 1 MG TABLET PO PRN ×3 (06:10→20:14)
[2021-01-26] MEDS: PANTOPRAZOLE SODIUM 40 MG TABLET.DR PO SCH (06:10)
[2021-01-26] MEDS: LEVOTHYROXINE SODIUM 100 MCG TABLET PO SCH (06:10)
--- NOTE | 2021-01-26 06:38 | NUR ---
She has been up since around 0400, yelling and talking to self, accusing staff of stealing her things, requiring frequent redirection. PRN ativan was given at 0610. currently in her room. will continue to monitor closely.
--- NOTE | 2021-01-26 06:55 | NUR ---
Slept 4 hours total. remains in room, quietly talking to self.
[2021-01-26 07:30] VITALS: BP 127/72
[2021-01-26] MEDS: OMEGA-3 FATTY ACIDS/FISH OIL CAPSULE PO SCH (08:44)
[2021-01-26] MEDS: SUCRALFATE 1 G TABLET PO SCH ×4 (08:44→20:20)
[2021-01-26] MEDS: METHADONE HCL 10 MG TABLET PO SCH ×2 (08:44→16:02)
[2021-01-26] MEDS: risperiDONE 1 MG TABLET PO SCH ×3 (08:44→17:08)
[2021-01-26] MEDS: LITHIUM CARBONATE 300 MG CAPSULE PO SCH ×3 (08:45→16:02)
[2021-01-26] MEDS: AMANTADINE HCL 100 MG CAPSULE PO SCH ×2 (08:45→20:20)
[2021-01-26] MEDS: NICOTINE 21 MG/24HR PATCH TD SCH (08:45)
[2021-01-26] MEDS: BENZTROPINE MESYLATE 1 MG TABLET PO SCH ×3 (08:45→16:02)
[2021-01-26] MEDS: NEOMY/BACITRAC/POLYMI OINT 28.35 GM TUBE TOP SCH (08:46)
[2021-01-26] MEDS: ENSURE ENLIVE (VAN) 240 ML LIQUID PO SCH ×3 (08:52→16:02)
[2021-01-26] MEDS: MIRALAX 17 GM POWD.PACK PO SCH (08:53)
[2021-01-26 16:00] VITALS: BP 115/79
--- NOTE | 2021-01-26 17:28 | NUR ---
GPS: PT WITH EPISODE OF ACTING OUT, ANXIOUS AND WANDERING THE HALLWAY. PT GIVEN ATIVAN AND PER PT "IT DOESNT WORK ON ME". PT CONTINUES TO BE NEEDY AND ATTENTION SEEKER. PT BEHAVIOR REMAINS THE SAME.
[2021-01-26 20:13] VITALS: BP 127/78
[2021-01-26] MEDS: diphenhydrAMINE 50 MG CAPSULE PO PRN ×2 (20:14→20:33)
[2021-01-26] MEDS: ACETAMINOPHEN 325 MG TABLET PO PRN (20:15)
[2021-01-26] MEDS ORDERED: diphenhydrAMINE 50 MG/1 ML VIAL IM ONE (20:45)
[2021-01-26] MEDS ORDERED: HALOPERIDOL LACTATE 5 MG/1 ML VIAL IM ONE (20:45)
--- NOTE | 2021-01-27 02:25 | NUR ---
Received to care, yelling, intrusive with peers and staff, difficult to redirect. PRN Ativan and Benadryl were both given at the start of the shift. She calmed down and fell asleep for a few hours. She then became even more agitated and aggressive, and increasingly intrusive, yelling, disrobing, and unable to be redirected. Dr Bell was called, and orders were given for IM Haldol 5 mg/Benadryl 50 mg, which were given at 2349. she once again fell asleep for a short while, then began to escalate in her behavior, becoming even more aggressive and difficult to redirect, requiring staff to do 1 to 1 monitoring. As of now, she continues to yell and and be intrusive, unable to be redirected. Currently up in [facility] chair for safety with staff at heR side, due to unsteady gait. Will continue to monitor closely.
[2021-01-27] MEDS: LORAZEPAM 1 MG TABLET PO PRN ×2 (05:48→22:55)
[2021-01-27] MEDS: LEVOTHYROXINE SODIUM 100 MCG TABLET PO SCH (05:49)
[2021-01-27] MEDS: PANTOPRAZOLE SODIUM 40 MG TABLET.DR PO SCH (05:49)
--- NOTE | 2021-01-27 05:49 | NUR ---
Slept, for several hours. is now awake, and slightly anxious. PRN ativan was given. She agreed to try to stay calm, and she would would be assisted to her bed.
[2021-01-27 07:30] VITALS: BP 118/62
[2021-01-27] MEDS: BENZTROPINE MESYLATE 1 MG TABLET PO SCH ×3 (08:38→17:28)
[2021-01-27] MEDS: OMEGA-3 FATTY ACIDS/FISH OIL CAPSULE PO SCH (08:38)
[2021-01-27] MEDS: LITHIUM CARBONATE 300 MG CAPSULE PO SCH ×3 (08:38→17:28)
[2021-01-27] MEDS: METHADONE HCL 10 MG TABLET PO SCH ×2 (08:38→17:28)
[2021-01-27] MEDS: SUCRALFATE 1 G TABLET PO SCH ×4 (08:51→20:37)
[2021-01-27] MEDS: NICOTINE 21 MG/24HR PATCH TD SCH (09:00)
[2021-01-27] MEDS: MIRALAX 17 GM POWD.PACK PO SCH (09:00)
[2021-01-27] MEDS: NEOMY/BACITRAC/POLYMI OINT 28.35 GM TUBE TOP SCH (09:00)
[2021-01-27] MEDS: ENSURE ENLIVE (VAN) 240 ML LIQUID PO SCH ×3 (09:00→17:00)
[2021-01-27] MEDS: AMANTADINE HCL 100 MG CAPSULE PO SCH ×2 (10:15→20:37)
[2021-01-27] MEDS: risperiDONE 1 MG TABLET PO SCH ×3 (10:16→17:28)
[2021-01-27] MEDS ORDERED: diphenhydrAMINE 50 MG/1 ML VIAL IM ONE (10:30)
[2021-01-27] MEDS ORDERED: HALOPERIDOL LACTATE 5 MG/1 ML VIAL IM ONE (10:30)
--- NOTE | 2021-01-27 11:00 | NUR ---
Pt is being disruptive on the unit, throws herself on the floor. Pt was noted to walk into mens room and take her shirt off, pt is disorganized and unable to follow directions. Pt is yelling and demends to be let out. Dr. Bell was contacted order for one time IM of Benadryl 50 mg and Haldol 5 mg was received. Pt was escorted to the room. Pt complied with the medicaiton
[2021-01-27 16:22] VITALS: BP 108/57
--- NOTE | 2021-01-27 17:00 | NUR ---
pt is disorganized, has poor safety awareness, refuses to use a walker, holds on the the rails, noted to be walking into wrong rooms and laying in wrong beds. Pt was noted to have significant bruising on her left hip and thigh along with swelling of the hip area. Pictures taken and Xray was ordered.
--- NOTE | 2021-01-27 18:33 | NUR ---
pt is noted to be disruptive, taking her clothes off, noted to be chewing on toilet paper, comes to the nursing station and throws herself on the floor. Pt was noted to be crawling on the floor and crying.
[2021-01-27 20:00] VITALS: BP 97/67
[2021-01-27] MEDS: ACETAMINOPHEN 325 MG TABLET PO PRN (20:36)
[2021-01-27] MEDS: HALOPERIDOL 5 MG TABLET PO SCH (21:50)
[2021-01-27 22:00] VITALS: BP 104/60
--- NOTE | 2021-01-28 02:26 | NUR ---
Received to care, sleeping intermittently, PO fluids and food were given, when awake. Compliant with medications. Bedtime dose of Haldol was held until she was fully awake, at 2150, when she became agitated and difficult to manage. She had an unsteady gait. She was placed in the namita chair for safety. She was given PRN Ativan at 2255, for escalating behavior, and yelling and inability to be . She was assisted to bed, but she immediately got up, again. She fell asleep in the chair, at nurses station for safety, at 0130. She was assisted to bed at this time, with bed alarm on, for safety. She appears to be sleeping well. No distress noted.
[2021-01-28] MEDS: PANTOPRAZOLE SODIUM 40 MG TABLET.DR PO SCH (05:54)
[2021-01-28] MEDS: LORAZEPAM 1 MG TABLET PO PRN ×3 (05:54→23:14)
[2021-01-28] MEDS: LEVOTHYROXINE SODIUM 100 MCG TABLET PO SCH (05:54)
--- NOTE | 2021-01-28 06:20 | NUR ---
slept 4.25 hours. assisted out of bed around 0555, and given PRN ativan, with her AM medications. currently at nurses station, in namita chair, for safety. remains anxious, and agitated, but directable.
[2021-01-28 08:14] VITALS: BP 104/79
[2021-01-28] MEDS: BENZTROPINE MESYLATE 1 MG TABLET PO SCH ×3 (08:44→16:58)
[2021-01-28] MEDS: LITHIUM CARBONATE 300 MG CAPSULE PO SCH ×3 (08:44→16:58)
[2021-01-28] MEDS: OMEGA-3 FATTY ACIDS/FISH OIL CAPSULE PO SCH (08:44)
[2021-01-28] MEDS: METHADONE HCL 10 MG TABLET PO SCH ×2 (08:44→16:57)
[2021-01-28] MEDS: SUCRALFATE 1 G TABLET PO SCH ×4 (08:44→20:23)
[2021-01-28] MEDS: risperiDONE 1 MG TABLET PO SCH ×3 (08:44→16:57)
[2021-01-28] MEDS: NICOTINE 21 MG/24HR PATCH TD SCH (08:45)
[2021-01-28] MEDS: ENSURE ENLIVE (VAN) 240 ML LIQUID PO SCH ×3 (08:45→17:00)
[2021-01-28] MEDS: NEOMY/BACITRAC/POLYMI OINT 28.35 GM TUBE TOP SCH (08:45)
[2021-01-28] MEDS: AMANTADINE HCL 100 MG CAPSULE PO SCH ×2 (08:45→20:23)
[2021-01-28] MEDS: MIRALAX 17 GM POWD.PACK PO SCH (08:49)
--- NOTE | 2021-01-28 09:30 | NUR ---
GPS: PT ON RICK CHAIR FOR SAFETY. TOOK MEDICATION THIS MORNING. WITH EPISODE OF GETTING OUT OF RICK- CHAIR. ASSISTED PT TO WALK AND USED THE BATHROOM. PT DID NOT DO GOOD WITH BREAKFAST. PT TALKING TO SELF AND HALUCINATION NOTED. PT PICKING SOMETHING FROM AIR.
--- NOTE | 2021-01-28 15:20 | NUR ---
GPS: PT AGITATED, TOOK OFF FROM RICK- CHAIR AND YELLING. REDIRECTED AND GIVEN ATIVAN, TOLERATED WELL.
[2021-01-28 15:36] VITALS: BP 98/68
--- NOTE | 2021-01-28 18:38 | NUR ---
GPS: PT WANDERING AROUND THE HALLWAY. GOING TO OTHER PT ROOM. PT REDIRECTED AND RE-ORIENTED. PT TALKING TO SELF. CONFUSED. PT HAVING VISUAL HALUCINATION LIKE REACHING SOMETHING ON THE GROUND. RE-ENFORCE REALITY.
--- NOTE | 2021-01-28 18:45 | NUR ---
GPS: MD ORDER U/A, PT URINE DARK AND PT GETTING SO CONFUSED. STANDING AND GETTING OUT OF RICK- CHAIR. WALKING UNSTEADY. OBTAINED THRU CLEAN CATCH.
[2021-01-28 18:56] LABS: *BILIRUBIN,URIN 1+ (NEGATIVE); *BLOOD, URINE NEGATIVE (NEGATIVE); *CLARITY,URINE CLEAR (CLEAR); *COLOR,URINE DARK YELLOW (YELLOW); *KETONES,URINE 1+ (NEGATIVE); LEUKOCYTE ESTERASE ,URINE 1+ (NEGATIVE); NITRITE, URINE NEGATIVE (NEGATIVE); PH,URINE 6.5 (5.0-8.0); UGLUCOSE NEGATIVE (NEGATIVE)
[2021-01-28 19:07] LABS: RBC,URINE 0-3 /HPF (0-3)
[2021-01-28 19:08] LABS: BACTERIA,URINE FEW /HPF (NONE SEEN); SQUAMOUS EPITHELIAL CELL,UR FEW /HPF (NONE SEEN)
[2021-01-28 20:00] VITALS: BP 100/59
[2021-01-28] MEDS: HALOPERIDOL 5 MG TABLET PO SCH (20:23)
[2021-01-28] MEDS: CEphaleXIN 500 MG CAPSULE PO SCH (23:13)
--- NOTE | 2021-01-29 00:10 | NUR ---
patient continue restless, flight of ideas, crying, whispering, unable to fall asleep, unable to CFS. Ativan 1mg PO PRN was given earlier without effect. Benadryl 50 mg QHS PO PRN for insomnia was given now. will continue to monitor.
[2021-01-29] MEDS: diphenhydrAMINE 50 MG CAPSULE PO PRN ×2 (00:18→22:03)
[2021-01-29] MEDS: PANTOPRAZOLE SODIUM 40 MG TABLET.DR PO SCH (06:16)
[2021-01-29] MEDS: LEVOTHYROXINE SODIUM 100 MCG TABLET PO SCH (06:16)
[2021-01-29] MEDS: CEphaleXIN 500 MG CAPSULE PO SCH ×3 (06:16→22:03)
[2021-01-29] MEDS: LORAZEPAM 1 MG TABLET PO PRN ×3 (06:44→23:33)
--- NOTE | 2021-01-29 06:45 | NUR ---
Patient slept for approx 4.15 hrs through the night. she was noted anxious, agitated, asking for her phone, her make up. She was help to the toilet and to brush her teeth. she was given Ativan 1mg PO PRN for anxiety/agitation. will continue to monitor.
[2021-01-29 07:30] VITALS: BP 108/70
[2021-01-29] MEDS: risperiDONE 1 MG TABLET PO SCH ×3 (08:48→17:08)
[2021-01-29] MEDS: OMEGA-3 FATTY ACIDS/FISH OIL CAPSULE PO SCH (08:48)
[2021-01-29] MEDS: BENZTROPINE MESYLATE 1 MG TABLET PO SCH ×3 (08:48→17:08)
[2021-01-29] MEDS: METHADONE HCL 10 MG TABLET PO SCH ×2 (08:48→17:08)
[2021-01-29] MEDS: AMANTADINE HCL 100 MG CAPSULE PO SCH ×2 (08:48→20:05)
[2021-01-29] MEDS: LITHIUM CARBONATE 300 MG CAPSULE PO SCH ×3 (08:48→17:08)
[2021-01-29] MEDS: SUCRALFATE 1 G TABLET PO SCH ×4 (08:48→20:06)
[2021-01-29] MEDS: MIRALAX 17 GM POWD.PACK PO SCH (08:49)
[2021-01-29] MEDS: NEOMY/BACITRAC/POLYMI OINT 28.35 GM TUBE TOP SCH (08:49)
[2021-01-29] MEDS: NICOTINE 21 MG/24HR PATCH TD SCH (08:49)
[2021-01-29] MEDS: ENSURE ENLIVE (VAN) 240 ML LIQUID PO SCH ×3 (08:49→17:09)
--- NOTE | 2021-01-29 09:02 | NUR ---
GPS: RECEIVED PT ON BED, AWAKE. PT MEDICATION AND TOLERATED WELL BUT SUSPICIOUS WITH MEDS GIVEN. STATED " YOU DID NOT GIVE MY ANTI- HYPERTENSIVE MEDS. STATED TO PT ALL THE MEDS SHE'D TAKEN. STATED "YOU'RE A LIAR". PT WITH EPISODE OF ANXIOUSNESS.
--- NOTE | 2021-01-29 15:51 | NUR ---
GPS: PT SEEN TALKING TO SELF. GETTING ANXIOUS AND TAKING OFF CLOTHES. PT AGITATED AND UNSTEADY. SAT AT RICK- CHAIR FOR SAFETY. PT GIVEN ATIVAN AND TOLERATED WELL.
[2021-01-29 16:00] VITALS: BP 100/71
[2021-01-29] MEDS: HALOPERIDOL 5 MG TABLET PO SCH (20:05)
--- NOTE | 2021-01-29 21:54 | NUR ---
Received patient in the hallway. she is sitting in a BRANDO chair near the nursing station. she is noted anxious. she is poor historian, she is unable to have a meaningful conversation with this telegraphic typewriter installer. she is observed talking to unseen persons. she continue unsteady on her feet. refused v/s at this time. safety and fall precaution in place. patient is reassured for her safety. she was given PO fluids and snacks and she was assisted to the bathroom. she is reassured for her safety. will continue to monitor closely
[2021-01-30] MEDS: LEVOTHYROXINE SODIUM 100 MCG TABLET PO SCH (06:14)
[2021-01-30] MEDS: PANTOPRAZOLE SODIUM 40 MG TABLET.DR PO SCH (06:15)
[2021-01-30] MEDS: CEphaleXIN 500 MG CAPSULE PO SCH ×3 (06:15→21:18)
[2021-01-30] MEDS ORDERED: LORAZEPAM 2 MG/1 ML VIAL IM ONE (06:45)
[2021-01-30] MEDS ORDERED: HALOPERIDOL LACTATE 5 MG/1 ML VIAL IM ONE (06:45)
--- NOTE | 2021-01-30 06:58 | NUR ---
GPS chemical restrain: Patient noted yelling and screaming, hitting staff trying to redirect. She was noted delusional, screaming,"I want my phone, I want to smoke now". patient was unable to redirect unable to CFS, DR Gonzales was notified and new order obtained to administer Haldol 2mg IM and Ativan 1mg IM stat one time order. order noted and carried out. will continue to monitor.
[2021-01-30] MEDS: SUCRALFATE 1 G TABLET PO SCH ×4 (07:30→20:04)
[2021-01-30 08:29] VITALS: BP 113/60
[2021-01-30] MEDS: METHADONE HCL 10 MG TABLET PO SCH ×2 (08:29→16:41)
[2021-01-30] MEDS: BENZTROPINE MESYLATE 1 MG TABLET PO SCH ×3 (08:29→16:42)
[2021-01-30] MEDS: ENSURE ENLIVE (VAN) 240 ML LIQUID PO SCH ×3 (08:30→16:42)
[2021-01-30] MEDS: NICOTINE 21 MG/24HR PATCH TD SCH (08:33)
[2021-01-30] MEDS: MIRALAX 17 GM POWD.PACK PO SCH (09:00)
[2021-01-30] MEDS: NEOMY/BACITRAC/POLYMI OINT 28.35 GM TUBE TOP SCH (09:00)
[2021-01-30] MEDS: OMEGA-3 FATTY ACIDS/FISH OIL CAPSULE PO SCH (09:00)
[2021-01-30] MEDS: LITHIUM CARBONATE 300 MG CAPSULE PO SCH ×3 (09:00→16:41)
[2021-01-30] MEDS: AMANTADINE HCL 100 MG CAPSULE PO SCH ×2 (09:00→20:04)
[2021-01-30] MEDS: HALOPERIDOL 5 MG TABLET PO SCH ×3 (09:47→20:04)
--- NOTE | 2021-01-30 10:28 | NUR ---
received patient up to [place]-chair agitated yelling ,attempted to get out of chair and putted self on the floor saying 'i fell".lithium held [address] tripathi's ordered.,will continue close monitoring.
[2021-01-30] MEDS: LORAZEPAM 1 MG TABLET PO PRN ×2 (10:43→20:03)
[2021-01-30 15:36] VITALS: BP 128/79
--- NOTE | 2021-01-30 15:48 | NUR ---
the food trades assistants nurse found her mouth full with black staffs,she told him that she was eating chocolate . in fact she was eating her own feces.
[2021-01-30 19:56] VITALS: BP 107/72
--- NOTE | 2021-01-30 20:10 | NUR ---
Received patient in the hallway, hyperverbal, disorganized, poor insight and poor judgement. Patient is med compliant. Able to follow command but redirection needed from time to time. Patient will remain in a psych facility for further evaluation and treatment.
[2021-01-31] MEDS: CEphaleXIN 500 MG CAPSULE PO SCH ×3 (06:23→22:00)
[2021-01-31] MEDS: PANTOPRAZOLE SODIUM 40 MG TABLET.DR PO SCH (06:53)
[2021-01-31] MEDS: LEVOTHYROXINE SODIUM 100 MCG TABLET PO SCH (06:53)
[2021-01-31] MEDS: SUCRALFATE 1 G TABLET PO SCH ×4 (07:30→20:12)
[2021-01-31 07:54] LABS: HEMATOCRIT 28.8 % (31.2-41.9); MEAN CORPUSCULAR HEMOGLOBIN 31.5 uug (24.7-32.8); MEAN CORPUSCULAR VOLUME 93.8 fL (75.5-95.3); PLATELET COUNT (AUTO) 242 K/uL (179-408)
[2021-01-31] MEDS: AMANTADINE HCL 100 MG CAPSULE PO SCH ×2 (08:22→20:12)
[2021-01-31] MEDS: NEOMY/BACITRAC/POLYMI OINT 28.35 GM TUBE TOP SCH (08:22)
[2021-01-31] MEDS: METHADONE HCL 10 MG TABLET PO SCH ×2 (08:23→16:54)
[2021-01-31] MEDS: BENZTROPINE MESYLATE 1 MG TABLET PO SCH ×3 (08:23→16:54)
[2021-01-31] MEDS: LITHIUM CARBONATE 300 MG CAPSULE PO SCH ×3 (08:23→16:54)
[2021-01-31] MEDS: HALOPERIDOL 5 MG TABLET PO SCH ×3 (08:23→20:12)
[2021-01-31] MEDS: OMEGA-3 FATTY ACIDS/FISH OIL CAPSULE PO SCH (08:24)
[2021-01-31] MEDS: NICOTINE 21 MG/24HR PATCH TD SCH (08:25)
[2021-01-31] MEDS: ENSURE ENLIVE (VAN) 240 ML LIQUID PO SCH ×3 (08:25→18:05)
[2021-01-31] MEDS: MIRALAX 17 GM POWD.PACK PO SCH (08:26)
[2021-01-31] MEDS: LORAZEPAM 1 MG TABLET PO PRN (09:23)
[2021-01-31 09:39] LABS: BILIRUBIN,TOTAL 0.9 mg/dL (0.2-1.0); CREATININE 1.1 mg/dL (0.6-1.3); MAGNESIUM 1.8 mg/dL (1.8-2.4); PHOSPHOROUS 3.4 mg/dL (2.5-4.9); POTASSIUM 3.5 mmol/L (3.5-5.1); TOTAL PROTEIN, SERUM 6.5 g/dL (6.4-8.2)
--- NOTE | 2021-01-31 17:45 | NUR ---
patient is alert and oriented. She is labile and irritable in mood, easily becomes agitated, and has poor boundaries and with staff and others. patient has child-like behaviors and requires constant redirection and reality orientation. patient is compliant with medications, no adverse reaction noted. patient denies suicidal and homicidal ideation, denies hallucinations. patient is suspicious and paranoid of staff that staff is stealing all her belongings and has stolen her cell phone and thousands of dollars. patient provided with education about impulse control and how to communicate needs to staff appropriately. patient encouraged to participate in unit groups and therapeutic milieu.
[2021-02-01] MEDS: CEphaleXIN 500 MG CAPSULE PO SCH ×3 (06:13→23:58)
[2021-02-01] MEDS: LEVOTHYROXINE SODIUM 100 MCG TABLET PO SCH (06:20)
[2021-02-01] MEDS: PANTOPRAZOLE SODIUM 40 MG TABLET.DR PO SCH (06:20)
[2021-02-01 07:30] VITALS: BP 95/56
[2021-02-01] MEDS: SUCRALFATE 1 G TABLET PO SCH ×4 (07:30→20:19)
[2021-02-01] MEDS: NICOTINE 21 MG/24HR PATCH TD SCH (08:01)
[2021-02-01] MEDS: METHADONE HCL 10 MG TABLET PO SCH ×2 (08:02→17:01)
[2021-02-01] MEDS: LITHIUM CARBONATE 300 MG CAPSULE PO SCH ×3 (08:02→17:01)
[2021-02-01] MEDS: HALOPERIDOL 5 MG TABLET PO SCH ×3 (08:02→20:20)
[2021-02-01] MEDS: BENZTROPINE MESYLATE 1 MG TABLET PO SCH ×3 (08:02→17:01)
[2021-02-01] MEDS: OMEGA-3 FATTY ACIDS/FISH OIL CAPSULE PO SCH (08:03)
[2021-02-01] MEDS: ENSURE ENLIVE (VAN) 240 ML LIQUID PO SCH ×3 (08:03→17:02)
[2021-02-01] MEDS: MIRALAX 17 GM POWD.PACK PO SCH (08:04)
[2021-02-01] MEDS: AMANTADINE HCL 100 MG CAPSULE PO SCH ×2 (08:09→20:20)
[2021-02-01] MEDS: NEOMY/BACITRAC/POLYMI OINT 28.35 GM TUBE TOP SCH (08:10)
--- NOTE | 2021-02-01 10:54 | NUR ---
JOSE ELISE Hearing: Patient had [id number] probable cause hearing today and it was upheld for grave disability.
[2021-02-01] MEDS: LORAZEPAM 1 MG TABLET PO PRN (12:24)
--- NOTE | 2021-02-01 15:01 | NUR ---
patient is alert and oriented x3, with episode agitated and irritable,Ativan 1 mg given as PRN ordered and effective .patient is follow with re-directions .denies any SI/HI, vital sign stable.aware of discharge plan in AM.compliant with all medication .will continue close monitoring.
[2021-02-01 16:00] VITALS: BP 100/70
[2021-02-01 19:50] VITALS: BP 101/56
[2021-02-02] MEDS: LEVOTHYROXINE SODIUM 100 MCG TABLET PO SCH (06:38)
[2021-02-02] MEDS: PANTOPRAZOLE SODIUM 40 MG TABLET.DR PO SCH (06:38)
[2021-02-02] MEDS: CEphaleXIN 500 MG CAPSULE PO SCH (06:38)
[2021-02-02] MEDS: SUCRALFATE 1 G TABLET PO SCH (06:39)
[2021-02-02 07:30] VITALS: BP 105/66
--- NOTE | 2021-02-02 08:15 | NUR ---
JOSE Discharge Note: Pt will be discharged home at [address] [facility] [address], [place] [address] ([phone]). Patients Irvin ([phone]) will fern picker at 11AM. Patient is alert and oriented x4. Patient denies suicidal or homicidal ideation. Patient presents with appropriate mood and congruent affect. Pt is aware and agreeable with discharge plan. Pt will be following up with her psychiatrist Dr. King at [facility] [address] , [place] [address]. Pt has been provided mental health resource for [facility] [address] [facility] [facility] [address], [place] [address] ([phone]). Pt has been provided resource for primary care at [facility] [address] [place] [id number] Bob ([phone]). SW provided patient with the following caregiving resources: [facility]; ([phone]), [facility]; ([phone]), [facility]; ([phone]).
[2021-02-02] MEDS: BENZTROPINE MESYLATE 1 MG TABLET PO SCH (08:42)
[2021-02-02] MEDS: OMEGA-3 FATTY ACIDS/FISH OIL CAPSULE PO SCH (08:42)
[2021-02-02] MEDS: AMANTADINE HCL 100 MG CAPSULE PO SCH (08:42)
[2021-02-02] MEDS: LITHIUM CARBONATE 300 MG CAPSULE PO SCH (08:42)
[2021-02-02] MEDS: NICOTINE 21 MG/24HR PATCH TD SCH (08:43)
[2021-02-02] MEDS: MIRALAX 17 GM POWD.PACK PO SCH (08:43)
[2021-02-02] MEDS: NEOMY/BACITRAC/POLYMI OINT 28.35 GM TUBE TOP SCH (08:43)
[2021-02-02] MEDS: METHADONE HCL 10 MG TABLET PO SCH (08:43)
[2021-02-02] MEDS: HALOPERIDOL 5 MG TABLET PO SCH (08:43)
[2021-02-02] MEDS: ENSURE ENLIVE (VAN) 240 ML LIQUID PO SCH (08:48)
--- NOTE | 2021-02-02 10:46 | NUR ---
Gps/Music Library Assistant- Reviewed discharged instructions ,prescriptions, safety, diet,nutritional needs, safety, follow up with Primary medical Doctor as well as her Primary Psychiatrist, verbalized understanding. All belongings/valuables to patient. given back . Boyfriend/ Irvin in to orange picking supervisor patient . Discharged to home via private care, in no signs of any distress, no discomfort, no pain no complaints noted.
== END 2021-02-02 11:00 | disposition home or self-care (01) | DRG 885 ==
LOC: ER 14:00 → GPS 14:44
PROVIDERS: ADMIT Psychiatry & Neurology Psychiatry; ATTEND Nurse Practitioner Acute Care
DX: F31.2 Bipolar disorder, current episode manic severe with psychotic features (principal); F01.50 Vascular dementia, unspecified severity, without behavioral disturbance, psychotic disturbance, mood disturbance, and anxiety; J18.9 Pneumonia, unspecified organism; N39.0 Urinary tract infection, site not specified; Z68.1 Body mass index [BMI] 19.9 or less, adult; R45.851 Suicidal ideations; E46 Unspecified protein-calorie malnutrition; J44.0 Chronic obstructive pulmonary disease with (acute) lower respiratory infection; E44.1 Mild protein-calorie malnutrition; E03.9 Hypothyroidism, unspecified; G89.4 Chronic pain syndrome; R62.7 Adult failure to thrive; Z87.01 Personal history of pneumonia (recurrent); F29 Unspecified psychosis not due to a substance or known physiological condition; F17.210 Nicotine dependence, cigarettes, uncomplicated; Z79.891 Long term (current) use of opiate analgesic; F60.89 Other specific personality disorders
CPT/HCPCS: 36415; 70030-TC; 71045; 73502; 83735; 84100; 84443; 85025; 87086; 93005; A4663; J1200; J1630; J1631; J2060; J2358; J3490; Q0163